=== PATIENT | male | born 1960 | race African-American/Black ===

== ENCOUNTER 2017-07-18 08:46 | Emergency (ER) | payer OTHER ==
[~2017-07-18] VITALS: Ht 180.3 cm; Wt 75.7 kg
[2017-07-18] MEDS ORDERED: PEPCID40 MG PO (09:25)
--- NOTE | 2017-07-18 09:25 | Emergency Room Report ---
History of Present Illness General Chief Complaint: Abdominal Pain Source: Patient Present Illness HPI 56-year-old male with no sig pmhx p/w epigastric abd pain for in week, but has been dealing with the problem for about 8 months. Patient states pain started gradually , localized to epigastric area, non radiating, burning in nature, intermittent. No relieving or exacerbating factors. Admits to have this pain multiple times in the past. denies chronic NSAID use. Pt reports n/v, 4 episodes of nbnb vomiting, no diarrhea. Denies black or bloody stools. Denies fever, chills. History of appendectomy No hx of endoscopies/colonoscopies. Allergies: Coded Allergies: No Known Allergies (Unverified , 07/18/17) Patient History Past Medical History: see triage record Past Surgical History: none Pertinent Family History: none Reviewed Nursing Documentation: PMH: Agreed, PSxH: Agreed Nursing Documentation-PMH Past Medical History: No History, Except For Review of Systems All Other Systems: negative except mentioned in HPI Physical Exam Vital Signs Date Time Temp Pulse Resp B/P (MAP) Pulse Ox O2 Delivery O2 Flow Rate FiO2 07/18/17 08:54 97.5 52 18 113/61 100 Room Air 97.5 Sp02 EP Interpretation: reviewed, normal General Appearance: normal inspection, well appearing, no apparent distress, alert, GCS 15, non-toxic Head: normocephalic, atraumatic Eyes: bilateral eye normal inspection, bilateral eye PERRL, bilateral eye EOMI ENT: normal ENT inspection, normal pharynx, normal voice, moist mucus membranes Neck: normal inspection, full range of motion, supple Respiratory: normal inspection, lungs clear, normal breath sounds, no respiratory distress, no retraction, no wheezing, speaking full sentences, chest symmetrical Cardiovascular #1: normal inspection, regular rate, rhythm, no edema, normal capillary refill Cardiovascular #2: 2+ radial (R), 2+ radial (L) Gastrointestinal: other - Epigastric tenderness, no right upper quadrant tenderness, nontender elsewhere in the abdomen, very soft and nonrigid Genitourinary: no CVA tenderness Musculoskeletal: normal inspection, back normal, normal range of motion, non- tender Neurologic: normal inspection, alert, oriented x3, responsive, motor strength/ tone normal, sensory intact, normal gait, speech normal Psychiatric: normal inspection, judgement/insight normal, memory normal Skin: normal inspection, normal color, no rash, warm/dry, well hydrated, normal turgor Medical Decision Making Diagnostic Impression: Primary Impression: Chronic epigastric pain ER Course 56-year-old male with epigastric abdominal pain for many months, worse for one week Differential Diagnosis: Gastritis, gastroenteritis, cholecystitis, appendicitis, diverticulitis,, UTI/ pyelo At this time abdomen is soft nontender a second epigastric region, not likely to have acute intra-abdominal surgical pathology, will hold CT for now. Plan: Basic labs, ua, ekg Pepcid, maalox, pain control, IVF ER course: Patient has remained stable during ED stay. Pain improved. Repeat abdominal exam is nontender. Tolerating PO Disposition: Patient is to be discharged to home. Prescriptions given are Pepcid Patient is instructed to follow up with their primary care doctor within 5 days. Patient is instructed to follow up with county or city auditor in one week Strict return precautions discussed with patient such as fever, chills, worsening/severe abdominal pain, nausea, vomiting, black or bloody stools, which may indicate severe illness. Patient verbalizes understanding and agrees with plan. Please note that this Emergency Department Report was dictated using [employer] inspector technology software, occasionally this can lead to erroneous entry secondary to interpretation by the dictation equipment EKG Diagnostic Results EP Interpretation: Yes Rate: normal Rhythm: NSR ST Segments: No acute changes ASA given to patient: No Laboratory Tests Test 07/18/17 09:31 White Blood Count 5.9 K/UL (4.8-10.8) Red Blood Count 4.95 M/UL (4.70-6.10) Hemoglobin 15.3 G/DL (14.2-18.0) Hematocrit 46.1 % (42.0-52.0) Mean Corpuscular Volume 93 FL (80-99) Mean Corpuscular Hemoglobin 31.0 PG (27.0-31.0) Mean Corpuscular Hemoglobin Concent 33.3 G/DL (32.0-36.0) Red Cell Distribution Width 12.3 % (11.6-14.8) Platelet Count 252 K/UL (150-450) Mean Platelet Volume 8.3 FL (6.5-10.1) Neutrophils (%) (Auto) 53.7 % (45.0-75.0) Lymphocytes (%) (Auto) 27.8 % (20.0-45.0) Monocytes (%) (Auto) 9.8 % (1.0-10.0) Eosinophils (%) (Auto) 7.2 % (0.0-3.0) H Basophils (%) (Auto) 1.5 % (0.0-2.0) Urine Color Pale yellow Urine Appearance Clear Urine pH 9 (4.5-8.0) Urine Specific [place] 1.015 (1.005-1.035) Urine Protein Negative (NEGATIVE) Urine Glucose (UA) Negative (NEGATIVE) Urine Ketones Negative (NEGATIVE) Urine Occult Blood Negative (NEGATIVE) Urine Nitrite Negative (NEGATIVE) Urine Bilirubin Negative (NEGATIVE) Urine Urobilinogen Normal MG/DL (0.0-1.0) Urine Leukocyte Esterase Negative (NEGATIVE) Sodium Level 142 MMOL/L (136-145) Potassium Level 4.3 MMOL/L (3.5-5.1) Chloride Level 105 MMOL/L (98-107) Carbon Dioxide Level 36 MMOL/L (21-32) H Anion Gap 1 mmol/L (5-15) L Blood Urea Nitrogen 13 mg/dL (7-18) Creatinine 1.2 MG/DL (0.55-1.30) Estimate Glomerular Filtration Rate > 60 mL/min (>60) Glucose Level 87 MG/DL (74-106) Calcium Level 9.2 MG/DL (8.5-10.1) Total Bilirubin 0.3 MG/DL (0.2-1.0) Aspartate Amino Transferase (AST) 17 U/L (15-37) Alanine Aminotransferase (ALT) < 6 U/L (12-78) L Alkaline Phosphatase 194 U/L (46-116) H Total Protein 6.8 G/DL (6.4-8.2) Albumin 3.6 G/DL (3.4-5.0) Globulin 3.2 g/dL Albumin/Globulin Ratio 1.1 (1.0-2.7) Lipase 179 U/L (73-393) Last Vital Signs Date Time Temp Pulse Resp B/P (MAP) Pulse Ox O2 Delivery O2 Flow Rate FiO2 07/18/17 08:54 97.5 52 18 113/61 100 Room Air 97.5 Disposition: HOME, SELF-CARE Condition: Improved Scripts Famotidine (PEPCID) 40 Mg Tablet 40 MG PO DAILY, #14 TAB 0 Refills Prov: Summer Hall M.D. 07/18/17 Patient Instructions: Abdominal Pain, Adult, Gastritis, Adult Summer Hall M.D. Jul 18, 2017 09:25
[2017-07-18] MEDS ORDERED: Dicyclomine HCl 10mg/5ml oral soln ORAL ONE (09:30)
[2017-07-18] MEDS ORDERED: Mylanta II UD 30ml ORAL ONE (09:30)
[2017-07-18] MEDS ORDERED: Lidocaine 2% Visc 15ml soln ORAL ONE (09:30)
[2017-07-18 09:47] LABS: ANION GAP 1 mmol/L (5-15); BLOOD UREA NITROGEN 13 mg/dL (7-18); CALCIUM 9.2 MG/DL (8.5-10.1); CARBON DIOXIDE 36 MMOL/L (21-32); CHLORIDE 105 MMOL/L (98-107); CREATININE 1.2 MG/DL (0.55-1.30); POTASSIUM 4.3 MMOL/L (3.5-5.1); SODIUM 142 MMOL/L (136-145)
[2017-07-18 09:51] LABS: APPEARANCE,URINE CLEAR; BILIRUBIN, URINE NEGATIVE (NEGATIVE); COLOR,URINE PALE YELLOW; GLUCOSE, URINE (UA) NEGATIVE (NEGATIVE); KETONES,URINE NEGATIVE (NEGATIVE); LEUKOCYTE ESTERASE ,URINE NEGATIVE (NEGATIVE); NITRITE,URINE NEGATIVE (NEGATIVE); PH,URINE 9 (4.5-8.0); PROTEIN,URINE NEGATIVE (NEGATIVE); UROBILINOGEN,URINE NORMAL MG/DL (0.0-1.0)
[2017-07-18 09:52] LABS: ALANINE AMINOTRANSFERASE < 6 U/L (12-78); ALBUMIN 3.6 G/DL (3.4-5.0); ALBUMIN/GLOBULIN RATIO 1.1 (1.0-2.7); ALKALINE PHOSPHATASE 194 U/L (46-116); ASPARTATE AMINO TRANSFERASE 17 U/L (15-37); BILIRUBIN,TOTAL 0.3 MG/DL (0.2-1.0)
[2017-07-18 09:53] LABS: BASOPHILS % (AUTO) 1.5 % (0.0-2.0); EOSINOPHILS % (AUTO) 7.2 % (0.0-3.0); HEMATOCRIT 46.1 % (42.0-52.0); HEMOGLOBIN 15.3 G/DL (14.2-18.0); LYMPHOCYTES % (AUTO) 27.8 % (20.0-45.0); MEAN CORPUSCULAR VOLUME 93 FL (80-99); MONOCYTES % (AUTO) 9.8 % (1.0-10.0); NEUTROPHILS % (AUTO) 53.7 % (45.0-75.0); PLATELET COUNT 252 K/UL (150-450); RED BLOOD COUNT 4.95 M/UL (4.70-6.10); RED CELL DISTRIBUTION WIDTH 12.3 % (11.6-14.8); WHITE BLOOD COUNT 5.9 K/UL (4.8-10.8)
[2017-07-18 10:00] VITALS: BP 126/76
[2017-07-18 10:47] VITALS: BP 126/76
--- NOTE | 2017-07-19 16:05 | Cardiology Report ---
APPROVED REPORT EKG Measurement Heart [id number] ID [id number] Sinus bradycardia Nonspecific T wave abnormality Abnormal ECG
== END 2017-07-18 10:55 | disposition home or self-care (01) ==
LOC: EMR 09:20
DX: R10.13 Epigastric pain (principal)
CPT/HCPCS: 36415; 80053; 81003; 83690; 85025; 93005; 96361; 96374; 96375; 99284; J2405; S0028

== ENCOUNTER 2017-07-27 12:02 | Emergency (ER) | payer OTHER ==
[~2017-07-27] VITALS: Ht 180.3 cm; Wt 79.4 kg
[~2017-07-27 12:02] MED LIST: PEPCID40 MG PO
--- NOTE | 2017-07-27 12:48 | Emergency Room Report ---
History of Present Illness General Chief Complaint: Abdominal Pain Source: Patient, Medical Record Present Illness HPI 56-year-old male, history of GERD p/w epigastric abd pain and episode of vomiting for day. States that he ate chocolate, started to feel that he had pain, had one episode nonbilious nonbloody vomiting. No fever Patient states pain started gradually , localized to epigastric area, non radiating, burning in nature, intermittent. No relieving or exacerbating factors. Admits to have this pain multiple times in the past. Denies fever, chills. No hx of abdominal surgeries. No hx of endoscopies/colonoscopies. Allergies: Coded Allergies: No Known Allergies (Unverified , 07/18/17) Patient History Past Medical History: see triage record Past Surgical History: none Pertinent Family History: none Reviewed Nursing Documentation: PMH: Agreed, PSxH: Agreed Nursing Documentation-PMH Past Medical History: No History, Except For Review of Systems All Other Systems: negative except mentioned in HPI Physical Exam Vital Signs Date Time Temp Pulse Resp B/P (MAP) Pulse Ox O2 Delivery O2 Flow Rate FiO2 07/27/17 12:09 97.8 60 18 110/71 97 Room Air 97.9 Sp02 EP Interpretation: reviewed, normal General Appearance: normal inspection, well appearing, no apparent distress, alert, GCS 15, non-toxic Head: normocephalic, atraumatic Eyes: bilateral eye normal inspection, bilateral eye PERRL, bilateral eye EOMI ENT: normal ENT inspection, normal pharynx, normal voice, moist mucus membranes Neck: normal inspection, full range of motion, supple Respiratory: normal inspection, lungs clear, normal breath sounds, no respiratory distress, no retraction, no wheezing, speaking full sentences, chest symmetrical Cardiovascular #1: normal inspection, regular rate, rhythm, no edema, normal capillary refill Cardiovascular #2: 2+ radial (R), 2+ radial (L) Gastrointestinal: normal inspection, non tender, soft, non-distended, no guarding Genitourinary: no CVA tenderness Musculoskeletal: normal inspection, back normal, normal range of motion, non- tender Neurologic: normal inspection, alert, oriented x3, responsive, motor strength/ tone normal, sensory intact, normal gait, speech normal Psychiatric: normal inspection, judgement/insight normal, memory normal Skin: normal inspection, normal color, no rash, warm/dry, well hydrated, normal turgor Medical Decision Making Diagnostic Impression: Primary Impression: Epigastric pain Additional Impression: Vomiting ER Course 56-year-old male with one episode of vomiting and epigastric pain Currently not in any acute distress Differential Diagnosis: Gastritis, gastroenteritis, UTI/pyelo At this time abdomen is soft nontender, not likely to have acute intra- abdominal surgical pathology, will hold CT for now. Plan: Basic labs, ua Pepcid, maalox, pain control, IVF ER course: Patient has remained stable during ED stay. Pain improved. Repeat abdominal exam is nontender. Tolerating PO Disposition: Patient is to be discharged to home. Prescriptions given are Pepcid Patient is instructed to follow up with their primary care doctor within 5 days. Strict return precautions discussed with patient such as fever, chills, worsening/severe abdominal pain, nausea, vomiting, black or bloody stools, which may indicate severe illness. Patient verbalizes understanding and agrees with plan. Please note that this Emergency Department Report was dictated using [employer] application analyst technology software, occasionally this can lead to erroneous entry secondary to interpretation by the dictation equipment EKG Diagnostic Results EP Interpretation: Yes Rate: normal Rhythm: NSR ST Segments: No acute changes ASA given to patient: No Last Vital Signs Date Time Temp Pulse Resp B/P (MAP) Pulse Ox O2 Delivery O2 Flow Rate FiO2 07/27/17 12:09 97.8 60 18 110/71 97 Room Air 97.9 Disposition: HOME, SELF-CARE Condition: Improved Scripts Famotidine (PEPCID) 40 Mg Tablet 40 MG PO DAILY, #7 TAB 0 Refills Prov: Summer Hall M.D. 07/27/17 Referrals: [facility],REFERRING (PCP) Patient Instructions: Abdominal Pain, Adult, Gastritis, Adult Summer Hall M.D. Jul 27, 2017 12:48
[2017-07-27 12:52] LABS: BASOPHILS % (AUTO) 1.7 % (0.0-2.0); EOSINOPHILS % (AUTO) 6.6 % (0.0-3.0); HEMATOCRIT 43.4 % (42.0-52.0); HEMOGLOBIN 14.6 G/DL (14.2-18.0); MEAN CORPUSCULAR VOLUME 92 FL (80-99); NEUTROPHILS % (AUTO) 48.8 % (45.0-75.0); PLATELET COUNT 233 K/UL (150-450); RED BLOOD COUNT 4.72 M/UL (4.70-6.10); RED CELL DISTRIBUTION WIDTH 11.9 % (11.6-14.8); WHITE BLOOD COUNT 5.1 K/UL (4.8-10.8)
[2017-07-27 13:00] LABS: APPEARANCE,URINE CLEAR; BILIRUBIN, URINE NEGATIVE (NEGATIVE); COLOR,URINE PALE YELLOW; GLUCOSE, URINE (UA) NEGATIVE (NEGATIVE); KETONES,URINE NEGATIVE (NEGATIVE); LEUKOCYTE ESTERASE ,URINE NEGATIVE (NEGATIVE); NITRITE,URINE NEGATIVE (NEGATIVE); PH,URINE 6 (4.5-8.0); PROTEIN,URINE NEGATIVE (NEGATIVE); UROBILINOGEN,URINE NORMAL MG/DL (0.0-1.0)
[2017-07-27] MEDS ORDERED: Dicyclomine HCl 10mg/5ml oral soln ORAL ONE (13:00)
[2017-07-27] MEDS ORDERED: Mylanta II UD 30ml ORAL ONE (13:00)
[2017-07-27] MEDS ORDERED: Lidocaine 2% Visc 15ml soln ORAL ONE (13:00)
[2017-07-27 13:03] VITALS: BP 122/80
[2017-07-27 13:04] LABS: ANION GAP 2 mmol/L (5-15); BLOOD UREA NITROGEN 15 mg/dL (7-18); CARBON DIOXIDE 32 MMOL/L (21-32); CHLORIDE 105 MMOL/L (98-107); CREATININE 1.3 MG/DL (0.55-1.30); POTASSIUM 4.1 MMOL/L (3.5-5.1); SODIUM 139 MMOL/L (136-145)
[2017-07-27 13:08] LABS: ALANINE AMINOTRANSFERASE 23 U/L (12-78); ALBUMIN 3.6 G/DL (3.4-5.0); ALBUMIN/GLOBULIN RATIO 1.2 (1.0-2.7); ALKALINE PHOSPHATASE 193 U/L (46-116); ASPARTATE AMINO TRANSFERASE 16 U/L (15-37); BILIRUBIN,TOTAL 0.3 MG/DL (0.2-1.0)
[2017-07-27] MEDS ORDERED: PEPCID40 MG PO (13:21)
[2017-07-27 13:33] VITALS: BP 118/72
--- NOTE | 2017-07-30 16:36 | Cardiology Report ---
APPROVED REPORT EKG Measurement Heart [id number] Sinus bradycardia with sinus arrhythmia Otherwise normal ECG
== END 2017-07-27 13:34 | disposition home or self-care (01) ==
LOC: EMR 12:16
DX: R10.13 Epigastric pain (principal); R11.10 Vomiting, unspecified
CPT/HCPCS: 36415; 80053; 81003; 83690; 85025; 93005; 96374; 99284; J2405

== ENCOUNTER 2017-08-08 23:10 | Emergency (ER) | payer OTHER ==
[~2017-08-08] VITALS: Ht 180.3 cm; Wt 78.0 kg
[2017-08-08] MEDS ORDERED: Lidocaine 2% Visc 15ml soln ORAL ONE (23:30)
[2017-08-08] MEDS ORDERED: Albuterol ud Inhalation HHN ONE (23:30)
[2017-08-08] MEDS ORDERED: Dicyclomine HCl 10mg/5ml oral soln ORAL ONE (23:30)
[2017-08-08] MEDS ORDERED: Ipratropium 0.02% Inh Soln 2.5ml UD HHN ONE (23:30)
[2017-08-08] MEDS ORDERED: Mylanta II UD 30ml ORAL ONE (23:30)
[2017-08-09 00:13] LABS: APPEARANCE,URINE CLEAR; BILIRUBIN, URINE NEGATIVE (NEGATIVE); COLOR,URINE PALE YELLOW; GLUCOSE, URINE (UA) NEGATIVE (NEGATIVE); KETONES,URINE NEGATIVE (NEGATIVE); LEUKOCYTE ESTERASE ,URINE NEGATIVE (NEGATIVE); NITRITE,URINE NEGATIVE (NEGATIVE); PH,URINE 8 (4.5-8.0); PROTEIN,URINE NEGATIVE (NEGATIVE); UROBILINOGEN,URINE NORMAL MG/DL (0.0-1.0)
[2017-08-09 00:21] LABS: BASOPHILS % (AUTO) 0.9 % (0.0-2.0); EOSINOPHILS % (AUTO) 0.6 % (0.0-3.0); HEMATOCRIT 45.5 % (42.0-52.0); HEMOGLOBIN 15.8 G/DL (14.2-18.0); LYMPHOCYTES % (AUTO) 16.2 % (20.0-45.0); MEAN CORPUSCULAR VOLUME 91 FL (80-99); MONOCYTES % (AUTO) 3.4 % (1.0-10.0); NEUTROPHILS % (AUTO) 78.9 % (45.0-75.0); PLATELET COUNT 212 K/UL (150-450); WHITE BLOOD COUNT 9.6 K/UL (4.8-10.8)
[2017-08-09 00:28] LABS: ANION GAP 7 mmol/L (5-15); BLOOD UREA NITROGEN 15 mg/dL (7-18); CALCIUM 8.7 MG/DL (8.5-10.1); CARBON DIOXIDE 31 MMOL/L (21-32); CHLORIDE 104 MMOL/L (98-107); CREATININE 1.3 MG/DL (0.55-1.30); SODIUM 142 MMOL/L (136-145)
[2017-08-09 00:42] LABS: ALANINE AMINOTRANSFERASE 22 U/L (12-78); ALBUMIN 3.8 G/DL (3.4-5.0); ALBUMIN/GLOBULIN RATIO 1.2 (1.0-2.7); ALKALINE PHOSPHATASE 209 U/L (46-116); ASPARTATE AMINO TRANSFERASE 16 U/L (15-37); BILIRUBIN,TOTAL 0.4 MG/DL (0.2-1.0); CKMB 0.6 NG/ML (0.0-3.6); CREATINE KINASE 129 U/L (26-308)
[2017-08-09] MEDS ORDERED: PREDNISONE20 MG ORAL (00:52)
[2017-08-09] MEDS ORDERED: ALBUTEROL SULF8.5 GM INH (00:52)
[2017-08-09] MEDS ORDERED: RANITIDINE HCL150 MG ORAL (00:52)
[2017-08-09 01:16] VITALS: BP 122/67
--- NOTE | 2017-08-09 01:36 | Emergency Room Report ---
History of Present Illness General Chief Complaint: Abdominal Pain Source: Patient Present Illness HPI 56-year-old male presents ED for evaluation. Patient complaining of epigastric pain 1 hour. Sharp, 8 out of 10, nonradiating. States she has history of "stomach problems". His been here before for similar presentation. Patient also presenting with shortness of breath and dizziness with deep breaths. Denies any chest pain. Denies any leg swelling. Denies history of asthma. Admits to smoking. Denies cough. No other aggravating relieving factors. Denies any other associated symptoms Allergies: Coded Allergies: No Known Allergies (Unverified , 07/18/17) Patient History Past Medical History: none Past Surgical History: none Pertinent Family History: none Social History: Denies: smoking, alcohol use, drug use Immunizations: UTD Reviewed Nursing Documentation: PMH: Agreed, PSxH: Agreed Nursing Documentation-PMH Past Medical History: No Stated History Review of Systems All Other Systems: negative except mentioned in HPI Physical Exam Vital Signs Date Time Temp Pulse Resp B/P (MAP) Pulse Ox O2 Delivery O2 Flow Rate FiO2 08/08/17 23:13 97.6 64 14 122/67 96 Room Air 97.5 Sp02 EP Interpretation: reviewed, normal General Appearance: no apparent distress, alert, GCS 15, non-toxic Head: normocephalic, atraumatic Eyes: bilateral eye normal inspection, bilateral eye PERRL ENT: hearing grossly normal, normal pharynx, no angioedema, normal voice Neck: full range of motion, supple/symm/no masses Respiratory: chest non-tender, lungs clear, decreased breath sounds, speaking full sentences Cardiovascular #1: regular rate, rhythm, no edema Cardiovascular #2: 2+ carotid (R), 2+ carotid (L), 2+ radial (R), 2+ radial (L) , 2+ dorsalis pedis (R), 2+ dorsalis pedis (L) Gastrointestinal: normal bowel sounds, soft, non-distended, no guarding, no rebound, tenderness Rectal: deferred Genitourinary: normal inspection, no CVA tenderness Musculoskeletal: back normal, gait/station normal, normal range of motion, non- tender Neurologic: alert, oriented x3, responsive, motor strength/tone normal, sensory intact, speech normal Psychiatric: judgement/insight normal, memory normal, mood/affect normal, no suicidal/homicidal ideation Reflexes: 3+ bicep (R), 3+ bicep (L), 3+ tricep (R), 3+ tricep (L), 3+ knee (R) , 3+ knee (L) Skin: normal color, no rash, warm/dry, well hydrated Lymphatic: no adenopathy Medical Decision Making Diagnostic Impression: Primary Impression: Bronchitis Additional Impression: Gastritis Qualified Codes: K29.00 - Acute gastritis without bleeding ER Course Hospital Course 56-year-old male presents ED with epigastric pain. History of gastritis. Also complaining of shortness of breath and dizziness Differential diagnoses include: PTX, bronchitis, VA/unstable angina, contusion, muscle strain Clinical course Patient placed on stretcher. After initial history and physical I ordered labs , EKG, chest x-ray, IVFs, meds, nebulizer treatments. labs reviewed- all electrolytes normal, troponins negative, no leukocytosis, hemoglobin/hematocrit stable EKG - NSR, no acute ischemic changes interpreted by me Chest x-ray-no cardiomegaly, no rib fracture, no pneumothorax, no acute process On reassessment symptoms improved. Patient feeling better. States breathing treatment helped. Likely bronchitis. No cardiac risk factors. I believe patient can be safely discharged to home. I. I feel this is a highly complex case requiring extensive working including EKG/Rhythm strip, Xray/CT/US, Blood/urine lab work, repeat exams while in ED, and administration of strong opiates/narcotics for pain control, admission to hospital or close patient follow up. Diagnosis - bronchitis, gastritis Stable and discharged to home with Rx albuterol, prednisone, zantac. Instructed to followup with PMD. Return to ED if symptoms recur or worsen Labs Test 08/08/17 23:59 White Blood Count 9.6 K/UL (4.8-10.8) Red Blood Count 5.00 M/UL (4.70-6.10) Hemoglobin 15.8 G/DL (14.2-18.0) Hematocrit 45.5 % (42.0-52.0) Mean Corpuscular Volume 91 FL (80-99) Mean Corpuscular Hemoglobin 31.6 PG (27.0-31.0) Mean Corpuscular Hemoglobin Concent 34.7 G/DL (32.0-36.0) Red Cell Distribution Width 12.0 % (11.6-14.8) Platelet Count 212 K/UL (150-450) Mean Platelet Volume 8.1 FL (6.5-10.1) Neutrophils (%) (Auto) 78.9 % (45.0-75.0) Lymphocytes (%) (Auto) 16.2 % (20.0-45.0) Monocytes (%) (Auto) 3.4 % (1.0-10.0) Eosinophils (%) (Auto) 0.6 % (0.0-3.0) Basophils (%) (Auto) 0.9 % (0.0-2.0) Urine Color Pale yellow Urine Appearance Clear Urine pH 8 (4.5-8.0) Urine Specific [place] 1.010 (1.005-1.035) Urine Protein Negative (NEGATIVE) Urine Glucose (UA) Negative (NEGATIVE) Urine Ketones Negative (NEGATIVE) Urine Occult Blood Negative (NEGATIVE) Urine Nitrite Negative (NEGATIVE) Urine Bilirubin Negative (NEGATIVE) Urine Urobilinogen Normal MG/DL (0.0-1.0) Urine Leukocyte Esterase Negative (NEGATIVE) Sodium Level 142 MMOL/L (136-145) Potassium Level 4.0 MMOL/L (3.5-5.1) Chloride Level 104 MMOL/L (98-107) Carbon Dioxide Level 31 MMOL/L (21-32) Anion Gap 7 mmol/L (5-15) Blood Urea Nitrogen 15 mg/dL (7-18) Creatinine 1.3 MG/DL (0.55-1.30) Estimat Glomerular Filtration Rate > 60 mL/min (>60) Glucose Level 103 MG/DL (74-106) Calcium Level 8.7 MG/DL (8.5-10.1) Total Bilirubin 0.4 MG/DL (0.2-1.0) Aspartate Amino Transf (AST/SGOT) 16 U/L (15-37) Alanine Aminotransferase (ALT/SGPT) 22 U/L (12-78) Alkaline Phosphatase 209 U/L (46-116) Total Creatine Kinase 129 U/L (26-308) Creatine Kinase MB 0.6 NG/ML (0.0-3.6) Creatine Kinase MB Relative Index 0.4 Troponin I 0.000 ng/mL (0.000-0.056) Total Protein 7.1 G/DL (6.4-8.2) Albumin 3.8 G/DL (3.4-5.0) Globulin 3.3 g/dL Albumin/Globulin Ratio 1.2 (1.0-2.7) Lipase 112 U/L (73-393) EKG Diagnostic Results Rate: normal Rhythm: NSR ST Segments: no acute changes ASA given to the pt in ED: No Rhythm Strip Diag. Results EP Interpretation: yes Rhythm: NSR, no PVC's, no ectopy Chest X-Ray Diagnostic Results Chest X-Ray Diagnostic Results : Chest X-Ray Ordered: Yes # of Views/Limited/Complete: 1 View Indication: Shortness of Breath EP Interpretation: Yes Interpretation: no consolidation, no effusion, no pneumothorax, no acute cardiopulmonary disease Impression: No acute disease Electronically Signed by: Electronically signed by Ciro Rose MD Last Vital Signs Date Time Temp Pulse Resp B/P (MAP) Pulse Ox O2 Delivery O2 Flow Rate FiO2 08/09/17 01:16 97.5 18 122/67 100 Room Air 97.5 08/09/17 00:40 82 Status: improved Disposition: HOME, SELF-CARE Condition: Stable Scripts Ranitidine Hcl* (ZANTAC*) 150 Mg Tablet 150 MG ORAL TWICE A DAY, #30 TAB Prov: CIRO ROSE M.D. 08/09/17 Albuterol Sulfate* (ALBUTEROL SULFATE MDI*) 8.5 Gm Hfa.aer.ad 2 PUFF INH Q4H Y for cough/wheezing, #1 EA 0 Refills Prov: CIRO ROSE M.D. 08/09/17 Prednisone* (PREDNISONE*) 20 Mg Tablet 40 MG ORAL DAILY, #10 TAB Prov: CIRO ROSE M.D. 08/09/17 Patient Instructions: Gastritis, Adult, Acute Bronchitis, [id number] CIRO ROSE M.D. Aug 09, 2017 01:35
--- NOTE | 2017-08-09 11:54 | Diagnostic Imaging Report ---
Indication: Shortness of breath Technique: One view of the chest Comparison: Findings: Lungs and pleural spaces are clear. Heart size is upper limits normal Impression: No acute process This agrees with the preliminary interpretation provided by the emergency room physician
--- NOTE | 2017-08-09 16:47 | Cardiology Report ---
APPROVED REPORT EKG Measurement Heart [id number] Sinus rhythm with premature atrial complexes Nonspecific T wave abnormality Abnormal ECG
== END 2017-08-09 01:17 | disposition home or self-care (01) ==
LOC: EMR 23:32
DX: J40 Bronchitis, not specified as acute or chronic (principal); K29.70 Gastritis, unspecified, without bleeding
CPT/HCPCS: 36415; 71045; 80053; 81003; 82550; 82553; 83690; 84484; 85025; 93005; 94640; 94664; 96374; 96375; 99284; S0028

== ENCOUNTER 2017-10-10 12:56 | Emergency (ER) | payer OTHER ==
[~2017-10-10] VITALS: Ht 180.3 cm; Wt 82.6 kg
[~2017-10-10 12:56] MED LIST changes: +ALBUTEROL SULF8.5 GM INH; +PREDNISONE20 MG ORAL; +RANITIDINE HCL150 MG ORAL
[2017-10-10 13:08] VITALS: BP 115/67
[2017-10-10] MEDS ORDERED: Dicyclomine HCl 10mg/5ml oral soln ORAL ONE (13:30)
[2017-10-10] MEDS ORDERED: Lidocaine 2% Visc 15ml soln ORAL ONE (13:30)
[2017-10-10] MEDS ORDERED: Mylanta II UD 30ml ORAL ONE (13:30)
[2017-10-10] MEDS ORDERED: ACID CONTROL150 MG ORAL (13:36)
--- NOTE | 2017-10-10 13:38 | Emergency Room Report ---
History of Present Illness General Chief Complaint: Abdominal Pain Source: Patient Present Illness HPI 57-year-old male patient presents to ER complaining of epigastric pain secondary to acid reflux. Patient reports a history of acid reflux, currently taking famotidine for relief of symptoms, states he takes medication after symptoms began after eating. Patient reports that he ate steak,, string beans, mash potato dinner and experiencing symptoms yesterday. Reports vomiting, denies blood in vomit. Reports epigastric pain since that time. Denies diarrhea or urinary problems. Reports was able to eat food this morning without throwing up. Denies fever, chest pain, shortness of breath. Allergies: Coded Allergies: No Known Allergies (Unverified , 07/18/17) Patient History Past Medical History: see triage record Reviewed Nursing Documentation: PMH: Agreed; PSxH: Agreed Review of Systems All Other Systems: negative except mentioned in HPI Physical Exam Vital Signs Date Time Temp Pulse Resp B/P (MAP) Pulse Ox O2 Delivery O2 Flow Rate FiO2 10/10/17 13:08 97.8 52 19 115/67 97 Room Air 97.8 Sp02 EP Interpretation: reviewed, normal General Appearance: well appearing, no apparent distress, alert, GCS 15, non- toxic Head: normocephalic, atraumatic ENT: hearing grossly normal, normal pharynx, no angioedema, normal voice, uvula midline, moist mucus membranes Respiratory: lungs clear, normal breath sounds, no rhonchi, no respiratory distress, no accessory muscle use, no wheezing, speaking full sentences Cardiovascular #1: regular rate, rhythm, no edema Gastrointestinal: normal bowel sounds, non tender, soft, no mass, non-distended , no guarding, no rebound, other - negative Rovsing, negative Charles Genitourinary: no CVA tenderness Musculoskeletal: back normal, digits/nails normal, gait/station normal, normal range of motion, non-tender Neurologic: alert, oriented x3, responsive, motor strength/tone normal, sensory intact Medical Decision Making PA Attestation Dr. Avilez is my supervising Physician whom patient management has been discussed with. Diagnostic Impression: Primary Impression: Hx of gastroesophageal reflux (GERD) ER Course Pt. presents to the ED c/o intermittent epigastric pain. Ddx considered but are not limited to esophagitis, GERD, vomiting. negative Charles sign, negative Rovsing, low suspicion for cholecystitis or appendicitis. Vital signs: are WNL, pt. is afebrile Ordered Zofran and GI cocktail. ER COURSE: Physical examination no tenderness to palpation of abdomen on distraction. Low suspicion for acute underlying pathology, does not require labs or imaging at this time. Discussed acid reflux symptoms with patient, likely related to previous meal. Provided patient with GERD precautions. No red flag symptoms at this time, no chest pain or shortness of breath. instructed patient to take medication prior to meals to help prevent reflux symptoms. Follow up with PCP and discuss referral to GI for further diagnosis and treatment. May need new or change in current medication patient reports relief of symptoms following administration of medication. Patient able to tolerate by mouth fluids at this time. Patient okay for discharge to home. ER precautions given. Return to ER for new or worsening of symptoms. DISCHARGE: Rx provided for Ranitidine At this time pt is stable for d/c to home. Patient is resting, in no acute distress, nontoxic appearing. Will provide with patient care instructions and any necessary prescriptions. Patient to take medication as instructed. Care plan and follow-up instructions provided. Patient questions asked and answered. Patient instructed to follow-up with primary care provider in 3- 5 days to discuss further treatment and referral to GI specialist for evaluation. Patient states understanding and agreement to treatment plan ER precautions given. Patient instructed to return to ER immediately for any new or worsening of symptoms - Please note that this Emergency Department Report was dictated using [employer] truck operator technology software, occasionally this can lead to erroneous entry secondary to interpretation by the dictation equipment. Last Vital Signs Date Time Temp Pulse Resp B/P (MAP) Pulse Ox O2 Delivery O2 Flow Rate FiO2 10/10/17 13:08 97.8 52 19 115/67 97 Room Air 97.9 Disposition: HOME, SELF-CARE Condition: Stable Scripts Ranitidine Hcl* (ACID CONTROL*) 150 Mg Tablet 150 MG ORAL TWICE A DAY, #30 TAB Prov: Ran Martinez 10/10/17 Patient Instructions: Food Choices for Gastroesophageal Reflux Disease, Adult, [id number], Gastroesophageal Reflux Disease, Adult, Heartburn, [id number], Upper Gastrointestinal Series Additional Instructions: Followup with primary care provider in 3 -5 days for further treatment and referral to GI. Keep food journal of foods eaten and times of symptom onset. Take medications as directed. Patient questions asked and answered. ER precautions given, patient instructed to return to ER immediately for any new or worsening of symptoms including but not limited to chest pain, SOB, abdominal pain, blood in vomit. Drink fluids as tolerated to prevent dehydration. Take Tylenol OTC for pain, easier on stomach. Avoid spicy foods, avoid dairy. Do not eat late night meals. Elevate head of bed when sleeping. Ran Martinez October 10, 2017 13:38
[2017-10-10 13:55] VITALS: BP 115/67
== END 2017-10-10 13:54 | disposition home or self-care (01) ==
LOC: EMR 13:39
DX: R10.13 Epigastric pain (principal); Z87.19 Personal history of other diseases of the digestive system
CPT/HCPCS: 99283

== ENCOUNTER 2018-01-13 19:18 | Emergency (ER) | payer OTHER ==
[~2018-01-13] VITALS: Ht 180.3 cm; Wt 83.0 kg
[~2018-01-13 19:18] MED LIST changes: +ACID CONTROL150 MG ORAL
--- NOTE | 2018-01-13 19:55 | Emergency Room Report ---
History of Present Illness General Chief Complaint: Diarrhea Source: Patient Present Illness HPI Patient and girlfriend here with diarrhea. Also has abdominal cramping. Brown and green. No blood. No fevers. + nausea no vomit. No URI sy. Whereas girlfriend's diarrhea has stopped 3 days ago (after Immodium), his persists. Pain rated 8/10, diffuse, cramping and aching, intermittent. No travel, no unusual foods. Patient has h/o acid reflux and was on meds for this in the past. No headache, dizziness. Denies diabetes or other chronic illnesses. 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 Reviewed Nursing Documentation: PMH: Agreed; PSxH: Agreed Review of Systems All Other Systems: negative except mentioned in HPI Physical Exam Vital Signs Date Time Temp Pulse Resp B/P (MAP) Pulse Ox O2 Delivery O2 Flow Rate FiO2 01/13/18 19:31 98.2 62 18 114/78 95 Room Air 98.2 Sp02 EP Interpretation: reviewed, normal General Appearance: well appearing, no apparent distress, GCS 15, non-toxic Head: normocephalic, atraumatic Eyes: bilateral eye normal inspection, bilateral eye PERRL ENT: hearing grossly normal, normal voice, moist mucus membranes Neck: full range of motion, supple Respiratory: no respiratory distress, speaking full sentences Gastrointestinal: normal inspection, normal bowel sounds, soft, no guarding, no rebound, tenderness Musculoskeletal: digits/nails normal, gait/station normal, normal range of motion, no calf tenderness Neurologic: alert, oriented x3, normal gait, grossly normal Psychiatric: mood/affect normal Skin: no rash Medical Decision Making Diagnostic Impression: Primary Impression: Gastroenteritis ER Course Patient with diarrhea and acid feeling in stomach. DDx: gastroenteritis, pancreatitis, food poisoning amongst others. As girlfriend also has/had, consider infectious etiology. Not toxic and soft abdomen, doubt diverticulitis or invasive colitis. Given pepcid, zofran and loperamide. No labs indicated. Discussed treatment plan with patient. Patient stable for outpatient observation and treatment. Last Vital Signs Date Time Temp Pulse Resp B/P (MAP) Pulse Ox O2 Delivery O2 Flow Rate FiO2 01/13/18 20:13 98.2 18 114/78 95 Room Air 98.2 01/13/18 19:31 62 Status: improved Disposition: HOME, SELF-CARE Condition: Improved Scripts Loperamide Hcl (IMODIUM A-D) 1 Mg/7.5 Ml Liquid 1 MG PO BID PRN for Diarrhea, #6 ML Prov: Mich Spears M.D. 01/13/18 Ondansetron Odt* (ZOFRAN ODT*) 4 Mg Tab.rapdis 4 MG BC EVERY 8 HOURS, #6 TAB 0 Refills Prov: Mich Spears M.D. 01/13/18 Famotidine (PEPCID AC) 20 Mg Tablet 20 MG PO DAILY, #20 TAB 1 Refill Prov: Mich Spears M.D. 01/13/18 Mich Spears M.D. Jan 13, 2018 19:55
[2018-01-13] MEDS ORDERED: ONDANSETRON ODT4 MG BC (19:58)
[2018-01-13] MEDS ORDERED: IMODIUM A-1 MG/7.5 M PO (19:58)
[2018-01-13] MEDS ORDERED: PEPCID AC20 M2 PO (19:58)
[2018-01-13] MEDS ORDERED: Loperamide 2mg cap ORAL ONE (20:00)
[2018-01-13 20:12] VITALS: BP 114/78
[2018-01-13 20:13] VITALS: BP 114/78
== END 2018-01-13 20:01 | disposition home or self-care (01) ==
LOC: EMR 20:00
DX: K52.9 Noninfective gastroenteritis and colitis, unspecified (principal)
CPT/HCPCS: 99284

== ENCOUNTER 2018-02-15 19:44 | Emergency (ER) | payer OTHER ==
[~2018-02-15] VITALS: Ht 180.3 cm; Wt 80.3 kg
[~2018-02-15 19:44] MED LIST changes: +IMODIUM A-1 MG/7.5 M PO; +ONDANSETRON ODT4 MG BC; +PEPCID AC20 M2 PO
[2018-02-15] MEDS ORDERED: Norco 5mg/325mg tab ORAL ONE (20:15)
[2018-02-15] MEDS ORDERED: Tetanus/Diptheria/Pertussis Vaccine 0.5ml Syr IM ONE (20:15)
[2018-02-15] MEDS ORDERED: NORCO 5-325 TA1 EACH ORAL (20:16)
[2018-02-15] MEDS ORDERED: SILVADENE20 GM TP (20:16)
[2018-02-15] MEDS ORDERED: AUGMENTIN 875-1 EAC1 ORAL (20:16)
[2018-02-15] MEDS ORDERED: OMEPRAZOLE20 M2 ORAL (20:22)
[2018-02-15 20:46] VITALS: BP 106/67
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
== END 2018-02-15 20:53 | disposition home or self-care (01) ==
LOC: EMR 20:10
DX: S60.512A Abrasion of left hand, initial encounter (principal); L03.114 Cellulitis of left upper limb; X15.3XXA Contact with hot saucepan or skillet, initial encounter; Y93.89 Activity, other specified; Y92.9 Unspecified place or not applicable; Z23 Encounter for immunization
CPT/HCPCS: 90471; 90715; 99283

== ENCOUNTER 2018-03-06 16:32 | Emergency (ER) | payer OTHER ==
[~2018-03-06] VITALS: Ht 180.3 cm; Wt 80.7 kg
[~2018-03-06 16:32] MED LIST changes: +AUGMENTIN 875-1 EAC1 ORAL; +NORCO 5-325 TA1 EACH ORAL; +OMEPRAZOLE20 M2 ORAL; +SILVADENE20 GM TP
[2018-03-06] MEDS ORDERED: PEPCID AC20 M2 PO (16:54)
[2018-03-06] MEDS ORDERED: BACTROBAN CR1 APPLIC TOPIC (16:54)
[2018-03-06] MEDS ORDERED: NORCO 5-325 TA1 EACH ORAL (16:54)
[2018-03-06 17:39] VITALS: BP 108/67
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
== END 2018-03-06 17:40 | disposition home or self-care (01) ==
LOC: EMR 16:49
DX: S00.86XA Insect bite (nonvenomous) of other part of head, initial encounter (principal); W57.XXXA Bitten or stung by nonvenomous insect and other nonvenomous arthropods, initial encounter; Y92.9 Unspecified place or not applicable; K29.70 Gastritis, unspecified, without bleeding; R19.7 Diarrhea, unspecified; T23.20 Burn of second degree of hand, unspecified site; K21.9 Gastro-esophageal reflux disease without esophagitis
CPT/HCPCS: 99283

== ENCOUNTER 2018-03-10 18:54 | Emergency (ER) | payer OTHER ==
[~2018-03-10] VITALS: Ht 180.3 cm; Wt 80.7 kg
[~2018-03-10 18:54] MED LIST changes: +BACTROBAN CR1 APPLIC TOPIC
[2018-03-10] MEDS ORDERED: Bacitracin Oint 15gm Tube TOPIC ONE (19:15)
--- NOTE | 2018-03-10 19:28 | Emergency Room Report ---
History of Present Illness General Chief Complaint: Skin Rash/Abscess Source: Patient Present Illness HPI 57 YO male presents to the ED c/o 11/28 in severity pain, swelling, and erythema to a localized area on the right cheek x 5 days. pt. reports being evaluated previously last week and was rx'd ointment which has not helped. pt. reports his symptoms are worse and continue to progress. pt reports last week they were unable to express anything from the lesion. he states he has been icing it. denies use of warm compressed. pt denies pain with eye movements or purulent nasal drainage. pt. denies fevers or chills. Allergies: Coded Allergies: No Known Allergies (Unverified , 03/06/18) Patient History Past Medical History: see triage record Past Surgical History: none Pertinent Family History: none Immunizations: UTD Reviewed Nursing Documentation: PMH: Agreed; PSxH: Agreed Nursing Documentation-PMH Past Medical History: No History, Except For Hx Cardiac Problems: No Hx Hypertension: No Hx Pacemaker: No Hx Asthma: No Hx COPD: No Hx Diabetes: No Hx Cancer: No Hx Gastrointestinal Problems: Yes - GERD Hx Dialysis: No Hx Neurological Problems: No Hx Cerebrovascular Accident: No Hx Seizures: No Review of Systems All Other Systems: negative except mentioned in HPI Physical Exam Vital Signs Date Time Temp Pulse Resp B/P (MAP) Pulse Ox O2 Delivery O2 Flow Rate FiO2 03/10/18 19:05 98.1 59 16 115/68 95 Room Air 98.1 Sp02 EP Interpretation: reviewed, normal General Appearance: no apparent distress, alert, GCS 15, non-toxic Head: normocephalic, atraumatic, other - abscess on the face with some infection noted. there is induration , no fluctuance. no blisters or vesicles. Eyes: bilateral eye normal inspection, bilateral eye PERRL, bilateral eye EOMI ENT: hearing grossly normal, normal voice Neck: full range of motion Respiratory: chest non-tender, lungs clear, normal breath sounds, speaking full sentences Cardiovascular #1: regular rate, rhythm, no edema Musculoskeletal: back normal, gait/station normal, normal range of motion, non- tender Neurologic: alert, oriented x3, responsive, motor strength/tone normal, sensory intact, normal gait, speech normal, grossly normal Psychiatric: judgement/insight normal Skin: no rash, warm/dry, well hydrated, other - abscess on the face with some infection noted. there is induration , no fluctuance. no blisters or vesicles. Lymphatic: no adenopathy Medical Decision Making PA Attestation Dr. silva is my supervising Physician whom patient management has been discussed with. Diagnostic Impression: Primary Impression: Facial abscess ER Course 57 YO male presents to the ED c/o 11/28 in severity pain, swelling, and erythema to a localized area on the right cheek x 5 days. pt. reports being evaluated previously last week and was rx'd ointment which has not helped. pt. reports his symptoms are worse and continue to progress. pt reports last week they were unable to express anything from the lesion. he states he has been icing it. denies use of warm compressed. pt denies pain with eye movements or purulent nasal drainage. pt. denies fevers or chills. Ddx considered but are not limited to cellulitis, abscess, cystic acne, necrotizing fasciitis, insect bite, orbital cellulitis. Vital signs: are WNL, pt. is afebrile H&PE are most consistent with abscess on the face with some infection noted. there is induration , no fluctuance. no blisters or vesicles. ORDERS: none required at this time, the diagnosis is clinical ED INTERVENTIONS: -- d/w pt. that I do not feel fluctuance, and previous attempt at prior visit was unproductive I do not feel attempting to drain again with be the best course, also the location at which this lesion is very close to the lower lid. I explained to him I recommend a application architect manager or specialist to attempt additional drainage procedures. D/w pt. potential of scarring. - pt. demonstrates understanding and agreement. - Doxycycline PO - bacitracin DISCHARGE: At this time pt. is stable for d/c to home. Will provide printed patient care instructions, and any necessary prescriptions. Care plan and follow up instructions have been discussed with the patient prior to discharge. Last Vital Signs Date Time Temp Pulse Resp B/P (MAP) Pulse Ox O2 Delivery O2 Flow Rate FiO2 03/10/18 19:05 98.1 59 16 115/68 95 Room Air 98.1 Disposition: HOME, SELF-CARE Condition: Stable Scripts Acetaminophen* (TYLENOL EXTRA STRENGTH*) 500 Mg Tablet 500 MG ORAL Q6H, #20 TAB 0 Refills Prov: Alexa Stone 03/10/18 Doxycycline Hyclate* (VIBRAMYCIN*) 100 Mg Capsule 100 MG ORAL EVERY 12 HOURS for 7 Days, #14 CAP 0 Refills Prov: Alexa Stone 03/10/18 Departure Forms: Return to Work Return to Work Date: Mar 13, 2018 Work Restrictions: None Return to Full Activity: Mar 13, 2018 Patient Instructions: Abscess Additional Instructions: Take medications as directed. Follow up with a Primary Care Provider in 3-5 days for DERMATOLOGY REFERRAL , even if your symptoms have resolved. --Please review list of primary care clinics, if you do not already have a primary care provider Return sooner to ED if new symptoms occur, or current symptoms become worse. - Please note that this Emergency Department Report was dictated using [employer] technology software, occasionally this can lead to erroneous entry secondary to interpretation by the dictation equipment. Alexa Stone Mar 10, 2018 19:27
[2018-03-10 19:29] VITALS: BP 115/68
[2018-03-10] MEDS ORDERED: VIBRAMYCIN100 MG ORAL (19:29)
[2018-03-10] MEDS ORDERED: TYLENOL EXTRA500 MG ORAL (19:29)
[2018-03-10 19:45] VITALS: BP 125/79
== END 2018-03-10 20:15 | disposition home or self-care (01) ==
LOC: EMR 20:03
DX: L02.01 Cutaneous abscess of face (principal)
CPT/HCPCS: 99283

== ENCOUNTER 2018-03-24 13:32 | Emergency (ER) | payer OTHER ==
[~2018-03-24] VITALS: Ht 180.3 cm; Wt 79.8 kg
[~2018-03-24 13:32] MED LIST changes: +TYLENOL EXTRA500 MG ORAL; +VIBRAMYCIN100 MG ORAL
[2018-03-24 13:59] VITALS: BP 111/74
[2018-03-24] MEDS ORDERED: Lidocaine 2% Visc 15ml soln ORAL ONE (14:00)
[2018-03-24] MEDS ORDERED: Sodium Chloride 500ML 500 ML IV ONE (14:00)
[2018-03-24] MEDS ORDERED: Dicyclomine HCl 10mg/5ml oral soln ORAL ONE (14:00)
[2018-03-24] MEDS ORDERED: Mylanta II UD 30ml ORAL ONE (14:00)
--- NOTE | 2018-03-24 14:03 | Emergency Room Report ---
History of Present Illness General Chief Complaint: Abdominal Pain Source: Patient Present Illness HPI Patient is a 57-year-old male presented after increased abdominal pain. Patient gradual onset of symptoms. Patient reports having the episodes of diarrhea intermittently for the past 3-4 weeks. He states that he had been having a generalized crampy abdominal pain. He presents having a prior history of acid reflux and been taking acid blockers. He denies any hematemesis or bloody stools. He reports having recently injured his hands and having some pain to the hands. Allergies: Coded Allergies: No Known Allergies (Unverified , 03/06/18) Patient History Past Medical History: see triage record Reviewed Nursing Documentation: PMH: Agreed; PSxH: Agreed Nursing Documentation-PMH Past Medical History: No History, Except For Hx Cardiac Problems: No Hx Hypertension: No Hx Pacemaker: No Hx Asthma: No Hx COPD: No Hx Diabetes: No Hx Cancer: No Hx Gastrointestinal Problems: Yes - GERD Hx Dialysis: No Hx Neurological Problems: No Hx Cerebrovascular Accident: No Hx Seizures: No Review of Systems All Other Systems: negative except mentioned in HPI Physical Exam Vital Signs Date Time Temp Pulse Resp B/P (MAP) Pulse Ox O2 Delivery O2 Flow Rate FiO2 03/24/18 13:40 97.9 72 18 111/74 95 Room Air Sp02 EP Interpretation: reviewed, normal General Appearance: normal inspection, well appearing, no apparent distress, alert, GCS 15 Head: atraumatic ENT: normal ENT inspection, hearing grossly normal, normal voice Neck: normal inspection, full range of motion, supple, no bony tend Respiratory: normal inspection, lungs clear, normal breath sounds, no respiratory distress, no retraction, no wheezing Cardiovascular #1: regular rate, rhythm, no edema Gastrointestinal: normal inspection, soft, no guarding, no hernia Genitourinary: no CVA tenderness Musculoskeletal: normal inspection, back normal, normal range of motion Neurologic: normal inspection, alert, oriented x3, responsive, manager secondary III-XII nml as tested, speech normal Psychiatric: normal inspection, judgement/insight normal, mood/affect normal Skin: normal inspection, normal color, no rash Medical Decision Making Diagnostic Impression: Primary Impression: Epigastric pain Additional Impression: Conjunctivitis ER Course Patient presented for abdominal pain. Differential diagnoses included ischemic bowel, appendicitis, perforated viscus, abdominal aortic aneurysm, inferior myocardial infarction, viral gastroenteritis Because of complexity of patient's case laboratory testing and imaging studies were ordered.Laboratory studies are unremarkable. Patient was noted to have prior history of gastroesophageal reflux disease. He was given acid blockers as well as a GI cocktail. Patient was advised outpatient follow-up with his primary care physician. The patient is advised to return if he began having worsening pain persistent vomiting hematemesis or other concerns. Labs Test 03/24/18 14:15 03/24/18 14:20 White Blood Count 7.2 K/UL (4.8-10.8) Red Blood Count 5.26 M/UL (4.70-6.10) Hemoglobin 15.5 G/DL (14.2-18.0) Hematocrit 46.6 % (42.0-52.0) Mean Corpuscular Volume 89 FL (80-99) Mean Corpuscular Hemoglobin 29.5 PG (27.0-31.0) Mean Corpuscular Hemoglobin Concent 33.3 G/DL (32.0-36.0) Red Cell Distribution Width 11.5 % (11.6-14.8) Platelet Count 213 K/UL (150-450) Mean Platelet Volume 8.0 FL (6.5-10.1) Neutrophils (%) (Auto) 53.5 % (45.0-75.0) Lymphocytes (%) (Auto) 33.0 % (20.0-45.0) Monocytes (%) (Auto) 6.9 % (1.0-10.0) Eosinophils (%) (Auto) 5.8 % (0.0-3.0) Basophils (%) (Auto) 0.9 % (0.0-2.0) Sodium Level 140 MMOL/L (136-145) Potassium Level 4.0 MMOL/L (3.5-5.1) Chloride Level 105 MMOL/L (98-107) Carbon Dioxide Level 31 MMOL/L (21-32) Anion Gap 4 mmol/L (5-15) Blood Urea Nitrogen 15 mg/dL (7-18) Creatinine 1.3 MG/DL (0.55-1.30) Estimat Glomerular Filtration Rate > 60 mL/min (>60) Glucose Level 106 MG/DL (74-106) Calcium Level 8.9 MG/DL (8.5-10.1) Total Bilirubin 0.5 MG/DL (0.2-1.0) Aspartate Amino Transf (AST/SGOT) 19 U/L (15-37) Alanine Aminotransferase (ALT/SGPT) 26 U/L (12-78) Alkaline Phosphatase 293 U/L (46-116) Troponin I 0.004 ng/mL (0.000-0.056) Total Protein 7.4 G/DL (6.4-8.2) Albumin 3.6 G/DL (3.4-5.0) Globulin 3.8 g/dL Albumin/Globulin Ratio 0.9 (1.0-2.7) Lipase 232 U/L (73-393) Urine Color Yellow Urine Appearance Clear Urine pH 5 (4.5-8.0) Urine Specific [place] 1.020 (1.005-1.035) Urine Protein 1+ (NEGATIVE) Urine Glucose (UA) Negative (NEGATIVE) Urine Ketones 1+ (NEGATIVE) Urine Blood Negative (NEGATIVE) Urine Nitrite Negative (NEGATIVE) Urine Bilirubin Negative (NEGATIVE) Urine Urobilinogen 1 MG/DL (0.0-1.0) Urine Leukocyte Esterase 1+ (NEGATIVE) Urine RBC 0 /HPF (0 - 0) Urine WBC 0-2 /HPF (0 - 0) Urine Squamous Epithelial Cells None /LPF (NONE/OCC) Urine Bacteria Occasional /HPF (NONE) Last Vital Signs Date Time Temp Pulse Resp B/P (MAP) Pulse Ox O2 Delivery O2 Flow Rate FiO2 03/24/18 13:40 97.9 72 18 111/74 95 Room Air Status: improved Disposition: HOME, SELF-CARE Condition: Stable Scripts Gentamicin Sulfate* (GENTAK*) 5 Ml Drops 1 DROP RIGHT EYE Q4H, #1 DROP 0 Refills Prov: Blake Avilez MD 03/24/18 Omeprazole (OMEPRAZOLE) 20 Mg Capsule. 20 MG ORAL DAILY, #30 CAP Prov: Blake Avilez MD 03/24/18 Blake Avilez MD Mar 24, 2018 14:03
[2018-03-24 14:28] LABS: APPEARANCE,URINE CLEAR; BILIRUBIN, URINE NEGATIVE (NEGATIVE); GLUCOSE, URINE (UA) NEGATIVE (NEGATIVE); KETONES,URINE 1+ (NEGATIVE); LEUKOCYTE ESTERASE ,URINE 1+ (NEGATIVE); NITRITE,URINE NEGATIVE (NEGATIVE); PH,URINE 5 (4.5-8.0); PROTEIN,URINE 1+ (NEGATIVE); UROBILINOGEN,URINE 1 MG/DL (0.0-1.0)
[2018-03-24 14:30] LABS: COLOR,URINE YELLOW
[2018-03-24 14:45] LABS: BASOPHILS % (AUTO) 0.9 % (0.0-2.0); EOSINOPHILS % (AUTO) 5.8 % (0.0-3.0); HEMATOCRIT 46.6 % (42.0-52.0); HEMOGLOBIN 15.5 G/DL (14.2-18.0); MEAN CORPUSCULAR VOLUME 89 FL (80-99); MONOCYTES % (AUTO) 6.9 % (1.0-10.0); NEUTROPHILS % (AUTO) 53.5 % (45.0-75.0); PLATELET COUNT 213 K/UL (150-450); RED BLOOD COUNT 5.26 M/UL (4.70-6.10); RED CELL DISTRIBUTION WIDTH 11.5 % (11.6-14.8); WHITE BLOOD COUNT 7.2 K/UL (4.8-10.8)
[2018-03-24 14:47] LABS: ANION GAP 4 mmol/L (5-15); BLOOD UREA NITROGEN 15 mg/dL (7-18); CALCIUM 8.9 MG/DL (8.5-10.1); CARBON DIOXIDE 31 MMOL/L (21-32); CHLORIDE 105 MMOL/L (98-107); CREATININE 1.3 MG/DL (0.55-1.30); SODIUM 140 MMOL/L (136-145)
[2018-03-24 14:52] LABS: ALANINE AMINOTRANSFERASE 26 U/L (12-78); ALBUMIN 3.6 G/DL (3.4-5.0); ALBUMIN/GLOBULIN RATIO 0.9 (1.0-2.7); ALKALINE PHOSPHATASE 293 U/L (46-116); ASPARTATE AMINO TRANSFERASE 19 U/L (15-37); BILIRUBIN,TOTAL 0.5 MG/DL (0.2-1.0)
[2018-03-24] MEDS ORDERED: OMEPRAZOLE20 M2 ORAL (15:49)
[2018-03-24] MEDS ORDERED: GENTAK5 ML RIGHT EYE (15:49)
[2018-03-24 15:53] VITALS: BP 111/74
[2018-03-24 16:27] VITALS: BP 117/73
== END 2018-03-24 16:27 | disposition home or self-care (01) ==
LOC: EMR 14:15
DX: R10.13 Epigastric pain (principal); H10.9 Unspecified conjunctivitis; K21.9 Gastro-esophageal reflux disease without esophagitis
CPT/HCPCS: 36415; 80053; 81003; 83690; 84484; 85025; 96374; 96375; 99284; J2405; J7040; S0028

== ENCOUNTER 2018-03-27 14:50 | Emergency (ER) | payer OTHER ==
[~2018-03-27] VITALS: Ht 180.3 cm; Wt 79.8 kg
[~2018-03-27 14:50] MED LIST changes: +GENTAK5 ML RIGHT EYE
[2018-03-27] MEDS ORDERED: Morgan Lens TOPIC ONE (15:30)
[2018-03-27] MEDS ORDERED: Tetracaine 0.5% Opth 4ml Soln LEFT EYE ONE (15:30)
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
[2018-03-27 16:25] VITALS: BP 142/95
[2018-03-27] MEDS ORDERED: KETOROLAC TROMET5 M1 OP (16:49)
[2018-03-27] MEDS ORDERED: TYLENOL EXTRA500 MG ORAL (16:49)
[2018-03-27] MEDS ORDERED: OCUFLOX5 ML OP (16:49)
[2018-03-27] MEDS ORDERED: Fluorescein Strips BOTH EYES ONE (17:00)
[2018-03-27 18:00] VITALS: BP 135/78
== END 2018-03-27 18:00 | disposition home or self-care (01) ==
LOC: EMR 15:43
DX: H10.213 Acute toxic conjunctivitis, bilateral (principal); S05.01XA Injury of conjunctiva and corneal abrasion without foreign body, right eye, initial encounter; X58.XXXA Exposure to other specified factors, initial encounter; Y92.9 Unspecified place or not applicable; K21.9 Gastro-esophageal reflux disease without esophagitis
CPT/HCPCS: 99283

== ENCOUNTER 2018-03-31 01:34 | Emergency (ER) | payer OTHER ==
[~2018-03-31] VITALS: Ht 180.3 cm; Wt 79.8 kg
[~2018-03-31 01:34] MED LIST changes: +KETOROLAC TROMET5 M1 OP; +OCUFLOX5 ML OP
[2018-03-31 01:50] VITALS: BP 119/72
[2018-03-31] MEDS ORDERED: Bactrim-DS 1 tab ORAL ONE (02:15)
[2018-03-31] MEDS ORDERED: Bacitracin Oint UD TOPIC ONE (02:15)
--- NOTE | 2018-03-31 02:57 | Emergency Room Report ---
History of Present Illness General Chief Complaint: Skin Rash/Abscess Source: Patient Present Illness HPI Patient presents with several days of pain in the R axilla. He feels a bump there and it is slightly red. The pain is rated 7/10, aching, not radiating, worse with palpation. No fevers, chills, cough. H/O bronchitis - no wheezing. No other rashes. No trauma. No NVD, dysuria. H/O GERD. Denies DM. Tetanus 01/2018 Allergies: Coded Allergies: No Known Allergies (Unverified , 03/06/18) Patient History Past Medical History: see triage record Social History: Denies: smoking Reviewed Nursing Documentation: PMH: Agreed; PSxH: Agreed Nursing Documentation-PMH Hx Cardiac Problems: No Hx Hypertension: No Hx Pacemaker: No Hx Asthma: No Hx COPD: No Hx Diabetes: No Hx Cancer: No Hx Gastrointestinal Problems: Yes - gerd Hx Dialysis: No Hx Neurological Problems: No Hx Cerebrovascular Accident: No Hx Seizures: No Review of Systems All Other Systems: negative except mentioned in HPI Physical Exam Vital Signs Date Time Temp Pulse Resp B/P (MAP) Pulse Ox O2 Delivery O2 Flow Rate FiO2 03/31/18 01:43 98.1 60 16 119/72 97 03/31/18 01:50 Room Air Sp02 EP Interpretation: reviewed, normal General Appearance: well appearing, no apparent distress, alert, GCS 15 Head: normocephalic, atraumatic Eyes: bilateral eye normal inspection, bilateral eye PERRL ENT: hearing grossly normal, normal voice, moist mucus membranes Neck: full range of motion, supple Respiratory: no respiratory distress, speaking full sentences Cardiovascular #1: regular rate, rhythm Cardiovascular #2: 2+ radial (R) Gastrointestinal: normal inspection Musculoskeletal: gait/station normal, normal range of motion Neurologic: alert, oriented x3, normal gait, grossly normal Psychiatric: mood/affect normal Skin: other - erythematous nodule R axilla, no fluctuance Lymphatic: no adenopathy Medical Decision Making Diagnostic Impression: Primary Impression: Cellulitis of right axilla ER Course Patient with painful lesion R axilla. DDx: abscess, cellulitis, infected sebaceous cyst amongst others. Not large enough or fluctuant to be able to dhruv or aspirate. Antibiotics indicated as well as analgesics. Tetanus UTD. Patient started on tx. Patient stable for outpatient observation and treatment. Status: improved Disposition: HOME, SELF-CARE Condition: Improved Scripts Tramadol Hcl* (ULTRAM*) 50 Mg Tablet 50 MG ORAL Q6H PRN for For Pain, #8 TAB 0 Refills Prov: Mich Spears MD 03/31/18 Acetaminophen (Tylenol) 325 Mg Tablet 650 MG ORAL Q6H PRN for Prn Pain/Headache/Temp > 101, #20 TAB 0 Refills Prov: Mich Spears MD 03/31/18 Trimethoprim/Sulfamethoxazole 160/800* (BACTRIM DS TABLET*) 1 Each Tablet 1 TAB ORAL Q12H, #14 TAB 0 Refills Prov: Mich Spears MD 03/31/18 Bacitracin (Bacitracin) 28.4 Gm Oint...g. 1 APPLIC TOPIC BID, #14 GM Prov: Mich Spears MD 03/31/18 Referrals: [facility],REFERRING (PCP) Mich Spears MD Mar 31, 2018 02:57
[2018-03-31] MEDS ORDERED: TYLENOL325 MG ORAL (03:01)
[2018-03-31] MEDS ORDERED: BACITRACIN15 GM TOPIC (03:01)
[2018-03-31] MEDS ORDERED: TRAMADOL HCL50 MG ORAL (03:01)
[2018-03-31] MEDS ORDERED: BACTRIM DS TAB1 EAC1 ORAL (03:01)
[2018-03-31 03:07] VITALS: BP 119/72
== END 2018-03-31 03:07 | disposition home or self-care (01) ==
LOC: EMR 02:04
DX: L03.111 Cellulitis of right axilla (principal); K21.9 Gastro-esophageal reflux disease without esophagitis
CPT/HCPCS: 99283

== ENCOUNTER 2018-05-14 13:06 | Emergency (ER) | payer OTHER ==
[~2018-05-14] VITALS: Ht 180.3 cm; Wt 82.6 kg
[~2018-05-14 13:06] MED LIST changes: +BACITRACIN15 GM TOPIC; +BACTRIM DS TAB1 EAC1 ORAL; +TRAMADOL HCL50 MG ORAL; +TYLENOL325 MG ORAL
[2018-05-14 13:13] VITALS: BP 95/56
--- NOTE | 2018-05-14 13:56 | Emergency Room Report ---
History of Present Illness General Chief Complaint: Flu Like Symptoms Source: Medical Record Present Illness HPI 57-year-old male presents to the emergency department complaining of 10/10 in severity body aches, dizziness, nausea/vomiting, weakness/fatigue 2 days. Patient also reports that he has some nasal congestion and cough and cold-like symptoms for several days as well. Patient denies recent travel or ill contacts. He denies significant past medical history including cardiac history. Patient describes his dizziness as episodic primarily when he standing or getting up from a seated position and states that it feels more as if he is off balance like walking on a boat he denies vertigo. He denies recent head trauma. Denies CP, Palpitations, LOC, AMS, Changes in Vision, Sensation, paresthesias, or a sudden severe headache. Denies pain. Allergies: Coded Allergies: No Known Allergies (Unverified , 03/06/18) Patient History Past Medical History: see triage record Past Surgical History: none Pertinent Family History: none Reviewed Nursing Documentation: PMH: Agreed; PSxH: Agreed Nursing Documentation-PMH Past Medical History: No History, Except For Hx Cardiac Problems: No Hx Hypertension: No Hx Pacemaker: No Hx Asthma: No Hx COPD: No Hx Diabetes: No Hx Cancer: No Hx Gastrointestinal Problems: Yes - gerd Hx Dialysis: No Hx Neurological Problems: No Hx Cerebrovascular Accident: No Hx Seizures: No Review of Systems All Other Systems: negative except mentioned in HPI Physical Exam Vital Signs Date Time Temp Pulse Resp B/P (MAP) Pulse Ox O2 Delivery O2 Flow Rate FiO2 05/14/18 13:13 99.0 66 18 95/56 96 Room Air Sp02 EP Interpretation: reviewed, normal General Appearance: no apparent distress, alert, GCS 15, non-toxic Head: normocephalic, atraumatic Eyes: bilateral eye normal inspection, bilateral eye PERRL ENT: hearing grossly normal, normal voice Neck: full range of motion Respiratory: lungs clear, normal breath sounds, no rhonchi, no respiratory distress, no wheezing, speaking full sentences Cardiovascular #1: regular rate, rhythm, normal capillary refill Gastrointestinal: normal bowel sounds, non tender, soft, non-distended, no guarding Musculoskeletal: back normal, gait/station normal, normal range of motion, non- tender Neurologic: alert, oriented x3, responsive, motor strength/tone normal, sensory intact, normal gait, speech normal, other - dizziness upon standing- minimal then resolves., grossly normal Psychiatric: judgement/insight normal Skin: normal color, no rash, warm/dry, well hydrated Lymphatic: no adenopathy Medical Decision Making PA Attestation Dr. silva is my supervising Physician whom patient management has been discussed with. Diagnostic Impression: Primary Impression: Acute viral syndrome Additional Impression: Dehydration ER Course 57-year-old male presents to the emergency department complaining of 10/10 in severity body aches, dizziness, nausea/vomiting, weakness/fatigue 2 days. Patient also reports that he has some nasal congestion and cough and cold-like symptoms for several days as well. Patient denies recent travel or ill contacts. He denies significant past medical history including cardiac history. Patient describes his dizziness as episodic primarily when he standing or getting up from a seated position and states that it feels more as if he is off balance like walking on a boat he denies vertigo. He denies recent head trauma. Denies CP, Palpitations, LOC, AMS, Changes in Vision, Sensation, paresthesias, or a sudden severe headache. Denies pain. Ddx considered but are not limited to Mnire's, BPPV, labrinitis, cerebellar stroke, hypovolemia, cardiac cause. Vital signs: are WNL, pt. is afebrile H&PE are most consistent with : possible viral syndrome and orthostatic dizziness -- will investigate more No focal deficit to indicate TIA or CVA. No vertical nystagmus. Better after IV fluid and Ativan. Because of lack of focality and red flags, I see no need for CT scan. We'll discharge home. ORDERS: CBC: WNL BMP: WNL -- cr 1.4 -Troponin: 0.00 - Lipase: WNL ED INTERVENTIONS: 1.5 liters NS IV 4mg Zofran IV - Upon re-evaluation pt. reports feeling much better, not having dizziness, bodyaches are somewhat resolving. -I do not identify an emergent condition at this time. With current presentation , pt. is stable for close outpatient follow up and conservative treatment. D/ w pt. to return promptly to ED with worsening or new symptoms.- Pt. verbalizes' understanding and agreement with proposed treatment plan.proposed treatment plan. DISCHARGE: At this time pt. is stable for d/c to home. Will provide printed patient care instructions, and any necessary prescriptions. Care plan and follow up instructions have been discussed with the patient prior to discharge. Labs Test 05/14/18 14:15 White Blood Count 4.8 K/UL (4.8-10.8) Red Blood Count 4.89 M/UL (4.70-6.10) Hemoglobin 14.9 G/DL (14.2-18.0) Hematocrit 44.0 % (42.0-52.0) Mean Corpuscular Volume 90 FL (80-99) Mean Corpuscular Hemoglobin 30.4 PG (27.0-31.0) Mean Corpuscular Hemoglobin Concent 33.7 G/DL (32.0-36.0) Red Cell Distribution Width 11.1 % (11.6-14.8) Platelet Count 196 K/UL (150-450) Mean Platelet Volume 7.0 FL (6.5-10.1) Neutrophils (%) (Auto) 52.2 % (45.0-75.0) Lymphocytes (%) (Auto) 30.6 % (20.0-45.0) Monocytes (%) (Auto) 12.8 % (1.0-10.0) Eosinophils (%) (Auto) 2.9 % (0.0-3.0) Basophils (%) (Auto) 1.5 % (0.0-2.0) Sodium Level 137 MMOL/L (136-145) Potassium Level 3.6 MMOL/L (3.5-5.1) Chloride Level 101 MMOL/L (98-107) Carbon Dioxide Level 29 MMOL/L (21-32) Anion Gap 7 mmol/L (5-15) Blood Urea Nitrogen 11 mg/dL (7-18) Creatinine 1.4 MG/DL (0.55-1.30) Estimat Glomerular Filtration Rate > 60 mL/min (>60) Glucose Level 100 MG/DL (74-106) Calcium Level 8.7 MG/DL (8.5-10.1) Troponin I 0.000 ng/mL (0.000-0.056) Lipase 109 U/L (73-393) EKG Diagnostic Results EP Interpretation: Dr. Rose Rate: normal - 64 bmp Rhythm: NSR ST Segments: no acute changes ASA given to the pt in ED: No PA Scribe Text This Interpretation was scribed by ESSIE Stone. Last Vital Signs Date Time Temp Pulse Resp B/P (MAP) Pulse Ox O2 Delivery O2 Flow Rate FiO2 05/14/18 13:13 99.0 66 18 95/56 96 Room Air Disposition: HOME, SELF-CARE Condition: Stable Scripts Naproxen* (NAPROXEN*) 500 Mg Tablet.dr 500 MG ORAL TWICE A DAY for 7 Days, #14 TAB Prov: Alexa Stone 05/14/18 Ondansetron Odt* (ZOFRAN ODT*) 8 Mg Tab.rapdis 4 MG ORAL Q6H PRN for Nausea & Vomiting, #15 TAB Prov: Alexa Stone 05/14/18 Patient Instructions: Dehydration, Adult, Kjqa-[id number], Upper Respiratory Infection, Adult, [id number] Additional Instructions: Take medications as directed. Follow up with a Primary Care Provider in 3-5 days, even if your symptoms have resolved. --Please review list of primary care clinics, if you do not already have a primary care provider Return sooner to ED if new symptoms occur, or current symptoms become worse. - Please note that this Emergency Department Report was dictated using [employer] ax solution architect technology software, occasionally this can lead to erroneous entry secondary to interpretation by the dictation equipment. Alexa Stone May 14, 2018 13:56
[2018-05-14] MEDS ORDERED: NKM (14:24)
[2018-05-14 14:34] LABS: BASOPHILS % (AUTO) 1.5 % (0.0-2.0); EOSINOPHILS % (AUTO) 2.9 % (0.0-3.0); HEMOGLOBIN 14.9 G/DL (14.2-18.0); LYMPHOCYTES % (AUTO) 30.6 % (20.0-45.0); MEAN CORPUSCULAR VOLUME 90 FL (80-99); MONOCYTES % (AUTO) 12.8 % (1.0-10.0); NEUTROPHILS % (AUTO) 52.2 % (45.0-75.0); PLATELET COUNT 196 K/UL (150-450); RED BLOOD COUNT 4.89 M/UL (4.70-6.10); RED CELL DISTRIBUTION WIDTH 11.1 % (11.6-14.8); WHITE BLOOD COUNT 4.8 K/UL (4.8-10.8)
[2018-05-14 14:54] LABS: ANION GAP 7 mmol/L (5-15); BLOOD UREA NITROGEN 11 mg/dL (7-18); CALCIUM 8.7 MG/DL (8.5-10.1); CARBON DIOXIDE 29 MMOL/L (21-32); CHLORIDE 101 MMOL/L (98-107); CREATININE 1.4 MG/DL (0.55-1.30); POTASSIUM 3.6 MMOL/L (3.5-5.1); SODIUM 137 MMOL/L (136-145)
[2018-05-14 15:10] VITALS: BP 119/77
[2018-05-14] MEDS ORDERED: Sodium Chloride 500ML 500 ML IV ONE (15:15)
[2018-05-14] MEDS ORDERED: NAPROXEN500 M1 ORAL (16:29)
[2018-05-14] MEDS ORDERED: ZOFRAN ODT8 MG ORAL (16:29)
[2018-05-14 17:01] VITALS: BP 120/72
--- NOTE | 2018-05-15 12:23 | Cardiology Report ---
APPROVED REPORT EKG Measurement Heart [id number] Normal sinus rhythm with sinus arrhythmia Nonspecific T wave abnormality Abnormal ECG
== END 2018-05-14 17:02 | disposition home or self-care (01) ==
LOC: EMR 15:00
DX: B34.9 Viral infection, unspecified (principal); E86.0 Dehydration; K21.9 Gastro-esophageal reflux disease without esophagitis
CPT/HCPCS: 36415; 80048; 83690; 84484; 85025; 93005; 96361; 96374; 99284; J2405

== ENCOUNTER 2018-08-19 08:40 | Emergency (ER) | payer OTHER ==
[~2018-08-19] VITALS: Ht 180.3 cm; Wt 84.4 kg
[~2018-08-19 08:40] MED LIST changes: +NAPROXEN500 M1 ORAL; +NKM; +ZOFRAN ODT8 MG ORAL
[2018-08-19 08:49] VITALS: BP 101/67
[2018-08-19] MEDS ORDERED: ZITHROMAX250 MG ORAL (09:20)
[2018-08-19] MEDS ORDERED: PEPCID AC20 M2 PO (09:20)
--- NOTE | 2018-08-19 09:30 | Emergency Room Report ---
History of Present Illness General Chief Complaint: Flu Like Symptoms Source: Patient Present Illness HPI Patient presents with complaints of cough Runny nose Reports that he also has history of gastritis and has been out of his antacid medicine and having reflux sensation as well Denies any chest pain or shortness of breath and eyes any neck pain or photophobia Denies any diarrhea or lower abdominal pain Patient is here with partner who has some similar upper respiratory complaints as well Allergies: Coded Allergies: No Known Allergies (Unverified , 03/06/18) Patient History Past Medical History: see triage record Pertinent Family History: none Reviewed Nursing Documentation: PMH: Agreed; PSxH: Agreed Nursing Documentation-PMH Past Medical History: No History, Except For Hx Cardiac Problems: No Hx Hypertension: No Hx Pacemaker: No Hx Asthma: No Hx COPD: No Hx Diabetes: No Hx Cancer: No Hx Gastrointestinal Problems: Yes - gerd Hx Dialysis: No Hx Neurological Problems: No Hx Cerebrovascular Accident: No Hx Seizures: No Review of Systems All Other Systems: negative except mentioned in HPI Physical Exam Vital Signs Date Time Temp Pulse Resp B/P (MAP) Pulse Ox O2 Delivery O2 Flow Rate FiO2 08/19/18 08:49 97.5 46 20 101/67 96 Room Air Sp02 EP Interpretation: reviewed, normal General Appearance: well appearing, no apparent distress Head: normocephalic, atraumatic Eyes: bilateral eye PERRL, bilateral eye EOMI ENT: hearing grossly normal, normal pharynx, TMs + canals normal, uvula midline Neck: full range of motion, supple, no meningismus, no bony tend Respiratory: lungs clear, normal breath sounds, no rhonchi, no respiratory distress, no retraction, no accessory muscle use Cardiovascular #1: normal peripheral pulses, regular rate, rhythm, no edema, no gallop, no JVD, no murmur Gastrointestinal: normal bowel sounds, non tender, soft, no mass, no organomegaly, non-distended, no guarding, no hernia, no pulsatile mass, no rebound Genitourinary: no CVA tenderness Musculoskeletal: normal inspection Neurologic: oriented x3, responsive, closet builder III-XII nml as tested, motor strength/ tone normal, sensory intact Psychiatric: mood/affect normal Skin: normal color, no rash, warm/dry, palpation normal Lymphatic: normal inspection, no adenopathy Medical Decision Making Diagnostic Impression: Primary Impression: Influenza-like symptoms Additional Impression: Gastritis ER Course Multiple differentials and consideration including but not limited to URI, pharyngitis, cholecystitis pancreatitis Patient otherwise has a benign medical evaluation abdomen remains soft patient essentially asymptomatic at time of presentation Patient provided with appropriate initial intervention And requires close outpatient follow-up Last Vital Signs Date Time Temp Pulse Resp B/P (MAP) Pulse Ox O2 Delivery O2 Flow Rate FiO2 08/19/18 08:49 97.5 46 20 101/67 96 Room Air Status: unchanged Disposition: HOME, SELF-CARE Condition: Stable Scripts Azithromycin* (ZITHROMAX*) 250 Mg Tablet 250 MG ORAL DAILY, #6 TAB 0 Refills Take two tables once daily for 1 day, then one tablet once daily for 4 days. Prov: Aviva Alfaro DO 08/19/18 Famotidine (PEPCID AC) 20 Mg Tablet 20 MG PO DAILY, #20 TAB Prov: Aviva Alfaro DO 08/19/18 Referrals: Arsal[facility] Patient Instructions: Influenza, Adult, Kbmi-oe-Pdtm, Abdominal Pain, Adult Additional Instructions: Patient is provided with the discharge instructions notified to follow up with primary doctor in the next 2-3 days otherwise return to the er with any worsening symptoms. Please note that this report is being documented using [employer] technology. This can lead to erroneous entry secondary to incorrect interpretation by the dictating instrument. Aviva Alfaro DO Aug 19, 2018 09:30
--- NOTE | 2018-08-19 09:33 | NUR ---
ED Nurse Note: Pt. AAOX4. Ambulatory. camein to ER due to generalized body aches, cough, congestion with n/v x 7 days. Pt. is not actively vomiting at this time.
[2018-08-19 10:05] VITALS: BP 107/69
--- NOTE | 2018-08-19 10:07 | NUR ---
ER DISCHARGE NOTE: Patient is cleared to be discharged per ERMD, pt is aox4, on room air, with stable vital signs. pt was given dc and prescription instructions, pt was able to verbalize understanding, pt is able to ambulate with steady gait. pt took all belongings.
== END 2018-08-19 10:07 | disposition home or self-care (01) ==
LOC: EMR 09:00
DX: R05 Cough (principal); K29.70 Gastritis, unspecified, without bleeding; K21.9 Gastro-esophageal reflux disease without esophagitis
CPT/HCPCS: 99282

== ENCOUNTER 2019-06-06 13:28 | Emergency (ER) | payer OTHER ==
[~2019-06-06] VITALS: Ht 180.3 cm; Wt 83.9 kg
[~2019-06-06 13:28] MED LIST changes: +ZITHROMAX250 MG ORAL
--- NOTE | 2019-06-06 13:38 | NUR ---
ED Nurse Note: PT AMBULATED TO ED C/O COUGH WITH GREEN PHLEGM X 6 DAYS PT STATES HE TOOK MUCINEX AN DID NOT HELP
[2019-06-06 13:39] VITALS: BP 123/72
--- NOTE | 2019-06-06 13:40 | NUR ---
ED Nurse Note: XRAY AT BEDSIDE
--- NOTE | 2019-06-06 13:43 | NUR ---
ED Nurse Note: XRAY COMPLETED
--- NOTE | 2019-06-06 14:17 | Diagnostic Imaging Report ---
Indication: Cough Technique: One view of the chest Comparison: 08/08/2017 Findings: Lungs and pleural spaces are clear. Heart size is normal. No significant interim change Impression: No acute process
--- NOTE | 2019-06-06 14:19 | Emergency Room Report ---
History of Present Illness General Chief Complaint: Flu Like Symptoms Source: Patient Present Illness HPI 58-year-old male with history of heavy tobacco smoke, here complaining of 1 week of cough and congestion with phlegm production. Has not taken medication for symptom relief. Denies any fever and chills at this time. Reports that onset of his symptoms started with sore throat. Denies any recent travel, marijuana use, drug use. Patient does admit to of smoking 4 cigarettes/day on daily basis. Denies chest pain, shortness of breath, palpitation, headache and dizziness. Allergies: Coded Allergies: No Known Allergies (Unverified , 03/06/18) Patient History Past Medical History: see triage record Past Surgical History: unable to obtain Pertinent Family History: none Social History: Reports: smoking - tobacco Immunizations: UTD Reviewed Nursing Documentation: PMH: Agreed; PSxH: Agreed Nursing Documentation-PMH Past Medical History: No History, Except For Hx Cardiac Problems: No Hx Hypertension: No Hx Pacemaker: No Hx Asthma: No Hx COPD: No Hx Diabetes: No Hx Cancer: No Hx Gastrointestinal Problems: Yes - gerd Hx Dialysis: No Hx Neurological Problems: No Hx Cerebrovascular Accident: No Hx Seizures: No Review of Systems All Other Systems: negative except mentioned in HPI Physical Exam Vital Signs Date Time Temp Pulse Resp B/P (MAP) Pulse Ox O2 Delivery O2 Flow Rate FiO2 06/06/19 13:34 97.5 79 21 123/72 (89) 95 Room Air Sp02 EP Interpretation: reviewed, normal General Appearance: no apparent distress, alert, GCS 15, non-toxic Head: normocephalic, atraumatic Eyes: bilateral eye normal inspection, bilateral eye PERRL ENT: hearing grossly normal, normal pharynx, no angioedema, normal voice, TMs + canals normal, uvula midline, moist mucus membranes Neck: full range of motion, supple, thyroid normal, no meningismus, supple/symm /no masses Respiratory: chest non-tender, lungs clear, normal breath sounds, no rhonchi, no respiratory distress, no retraction, no accessory muscle use, no wheezing, speaking full sentences Cardiovascular #1: regular rate, rhythm, no edema, no murmur Gastrointestinal: normal bowel sounds, non tender, soft, non-distended, no guarding, no rebound Rectal: deferred Genitourinary: no CVA tenderness Musculoskeletal: back normal, no calf tenderness Neurologic: alert, motor strength/tone normal, oriented x3, sensory intact, responsive, speech normal Psychiatric: judgement/insight normal, memory normal, mood/affect normal, no suicidal/homicidal ideation Skin: no rash Lymphatic: no adenopathy Medical Decision Making PA Attestation All my diagnosis and treatment plans were reviewed ad discussed with my supervising physician Dr. Alfaro Diagnostic Impression: Primary Impression: Atypical pneumonia ER Course 58-year-old male with history of heavy tobacco smoke, here complaining of 1 week of cough and congestion with phlegm production. Has not taken medication for symptom relief. Denies any fever and chills at this time. Reports that onset of his symptoms started with sore throat. Denies any recent travel, marijuana use, drug use. Patient does admit to of smoking 4 cigarettes/day on daily basis. Denies chest pain, shortness of breath, palpitation, headache and dizziness. Ddx considered but are not limited to: atypical pneumonia, bronchitis, PNA, URI viral, bacterial bronchitis Vital signs: are WNL, pt. is afebrile H&PE are most consistent with: Atypical pneumonia ORDERS: Chest x-ray, azithromycin, guaifenesin, Tessalon Perles, albuterol ED INTERVENTIONS: None required at this time. DISCHARGE: At this time pt. is stable for d/c to home. Will provide printed patient care instructions, and any necessary prescriptions. Care plan and follow up instructions have been discussed with the patient prior to discharge. Patient to follow-up with primary care provider, avoid smoking, take medication as directed, if worsening symptoms return to emergency room. Chest X-Ray Diagnostic Results Chest X-Ray Diagnostic Results : Chest X-Ray Ordered: Yes # of Views/Limited/Complete: 1 View Indication: Other - cough EP Interpretation: Yes PA Xray: Interpretation reviewed, by supervising MD, and agrees with findings. Interpretation: no consolidation, no effusion, no pneumothorax Impression: No acute disease Electronically Signed by: Lacy Hernandez PA-C Last Vital Signs Date Time Temp Pulse Resp B/P (MAP) Pulse Ox O2 Delivery O2 Flow Rate FiO2 06/06/19 13:39 97.5 79 21 123/72 95 Room Air Disposition: HOME, SELF-CARE Condition: Stable Scripts Albuterol Sulfate (VENTOLIN HFA) 18 Gm Hfa.aer.ad 2 PUFFS INH EVERY 6 HOURS, #18 GM 0 Refills Prov: Lacy Persaud 06/06/19 Benzonatate* (TESSALON PERLE*) 100 Mg Capsule 100 MG ORAL THREE TIMES A DAY, #21 PERLE Prov: Lacy Persaud 06/06/19 Guaifenesin* (GUAIFENESIN*) 100 Mg/5 Ml Liquid 5 ML ORAL Q6H, #120 ML 0 Refills Prov: Lacy Persaud 06/06/19 Azithromycin* (ZITHROMAX*) 250 Mg Tablet 250 MG ORAL DAILY, #6 TAB 0 Refills Take two tables once daily for 1 day, then one tablet once daily for 4 days. Prov: Lacy Persaud 06/06/19 Patient Instructions: Upper Respiratory Infection, Adult, [id number] Additional Instructions: Take medication as directed, avoid smoking, follow-up with your primary care provider, if worsening symptoms return to emergency room Lacy Persaud Jun 06, 2019 14:19
[2019-06-06] MEDS ORDERED: VENTOLIN HFA18 GM INH (14:24)
[2019-06-06] MEDS ORDERED: GUAIFENESI100 MG/5 M ORAL (14:24)
[2019-06-06] MEDS ORDERED: TESSALON PERLE100 MG ORAL (14:24)
[2019-06-06] MEDS ORDERED: ZITHROMAX250 MG ORAL (14:24)
[2019-06-06 14:38] VITALS: BP 129/72
--- NOTE | 2019-06-06 14:39 | NUR ---
ER DISCHARGE NOTE: Patient is cleared to be discharged per ERMD, pt is aox4, on room air, with stable vital signs. pt was given dc and prescription instructions, pt was able to verbalize understanding, pt id band removed. pt is able to ambulate with steady gait. pt took all belongings.
== END 2019-06-06 14:40 | disposition home or self-care (01) ==
LOC: EMR 14:10
DX: J18.9 Pneumonia, unspecified organism (principal); K21.9 Gastro-esophageal reflux disease without esophagitis
CPT/HCPCS: 71045; Z7502; 99283

== ENCOUNTER 2020-01-08 13:39 | Emergency (ER) | payer OTHER ==
[~2020-01-08] VITALS: Ht 180.3 cm; Wt 81.6 kg
[~2020-01-08 13:39] MED LIST changes: +CYCLOBENZAPRINE10 MG ORAL; +GUAIFENESI100 MG/5 M ORAL; +TESSALON PERLE100 MG ORAL; +VENTOLIN HFA18 GM INH
--- NOTE | 2020-01-08 13:56 | NUR ---
ED Nurse Note: Patient walked in to ER via crutches for C/O a trash bin beng rolled over his right foot x 45 min ago. pain 10/10, patient can wiggle his toes, AAO x4, VSS at this time.
--- NOTE | 2020-01-08 14:14 | Emergency Room Report ---
History of Present Illness General Chief Complaint: Lower Extremity Injury Source: Patient Present Illness HPI Patient was in front of a trash bin weighing 400 pounds that rolled on his foot and twisted his ankle. He has pain when he tries to walk. He is unable to ambulate without crutches. The pain is 10/10 at this time. Does not radiate up into the leg. He denies any numbness. He is not taking medication and has not treated it with any ice. He is never injured the ankle in the past. No exposure to COVID-19 known No fevers, chills, sore throat, chest pain, palpitations, nausea, vomiting, diarrhea, dysuria, abdominal pain, shortness of breath, rashes, depression, anxiety, visual changes, dizziness, headache. 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 Patient History Past Medical History: none Social History: Reports: smoking Social History Narrative lives with girlfriend Reviewed Nursing Documentation: PMH: Agreed; PSxH: Agreed Nursing Documentation-PMH Past Medical History: No History, Except For Hx Hypertension: No Hx Pacemaker: No Hx Asthma: No Hx COPD: No Hx Diabetes: No Hx Cancer: No Hx Gastrointestinal Problems: Yes - gerd Hx Dialysis: No Hx Neurological Problems: No Hx Cerebrovascular Accident: No Hx Seizures: No Review of Systems All Other Systems: negative except mentioned in HPI Physical Exam Vital Signs Date Time Temp Pulse Resp B/P (MAP) Pulse Ox O2 Delivery O2 Flow Rate FiO2 01/08/20 13:43 97.5 115 17 142/90 (107) 98 Room Air Sp02 EP Interpretation: reviewed, normal General Appearance: well appearing, no apparent distress, GCS 15 Head: normocephalic Eyes: bilateral eye normal inspection, bilateral eye PERRL, bilateral eye EOMI ENT: moist mucus membranes Neck: normal inspection, full range of motion Respiratory: normal inspection Cardiovascular #1: regular rate, rhythm Cardiovascular #2: 2+ radial (R), 2+ dorsalis pedis (R) Gastrointestinal: normal inspection Musculoskeletal: tenderness - Right ankle and dorsum of foot. Ligaments intact. Diffuse tenderness. Neurologic: alert, distal neuro normal, oriented x3, grossly normal Psychiatric: mood/affect normal Skin: no rash, warm/dry Medical Decision Making Diagnostic Impression: Primary Impression: Right ankle sprain Qualified Codes: S93.401A - Sprain of unspecified ligament of right ankle, initial encounter ER Course Patient presents with right ankle and foot injury. Differential includes sprain , contusion and fracture. By [place] ankle rules he qualifies for x-ray as he is unable to ambulate. He is allergic to Motrin will be given Percocet. I applied ice to the ankle. X-ray without fracture, dislocation or soft tissue swelling. Air splint applied by tech. Examined by me. Neurovascular intact. Improvement in pain. Discussed findings with patient. Patient stable for outpatient observation and treatment. Other X-Ray Diagnostic Results Other X-Ray Diagnostic Results : X-Ray ordered: Right ankle # of Views/Limited Vs Complete: 3 View Indication: Pain EP Interpretation: Yes Interpretation: no dislocation, no soft tissue swelling, no fractures Impression: No acute disease Electronically Signed by: Electronically signed by Mich Spears MD Last Vital Signs Date Time Temp Pulse Resp B/P (MAP) Pulse Ox O2 Delivery O2 Flow Rate FiO2 01/08/20 15:56 97.5 17 142/90 98 Room Air 01/08/20 13:43 115 Status: improved Disposition: HOME, SELF-CARE Condition: Improved Scripts Hydrocodone Bit/Acetaminophen 5-325* (NORCO 5-325 TABLET*) 1 Each Tablet 1 TAB ORAL Q6H PRN for FOR PAIN, #10 TAB 0 Refills Prov: Mich Spears MD 01/08/20 Referrals: [facility],REFERRING (PCP) Mich Spears MD Jan 08, 2020 14:14
[2020-01-08] MEDS ORDERED: oxyCODONE HCL/Acetaminophen 5/325mg PO ONE (14:15)
[2020-01-08] MEDS ORDERED: NORCO 5-325 TA1 EAC1 ORAL (15:24)
[2020-01-08 15:56] VITALS: BP 142/90
--- NOTE | 2020-01-08 15:56 | NUR ---
ED Nurse Note: Pt cleared by health care Provider for discharge. DC instructions/prescription was given and explained to pt and verbalized understanding of teachings. All medical deviecs such as ID band removed. Pt is AAO x4, ambulatory and left with all personal belongings.
--- NOTE | 2020-01-08 16:18 | Diagnostic Imaging Report ---
Indication: Trauma, pain Technique: 3 views of the right ankle Comparison: none Findings: No acute fractures. No dislocations. The joint spaces are preserved Impression: Negative
== END 2020-01-08 15:58 | disposition home or self-care (01) ==
LOC: EMR 14:10
DX: S93.401A Sprain of unspecified ligament of right ankle, initial encounter (principal); X58.XXXA Exposure to other specified factors, initial encounter; Y92.9 Unspecified place or not applicable; Z88.6 Allergy status to analgesic agent; F17.200 Nicotine dependence, unspecified, uncomplicated; K21.9 Gastro-esophageal reflux disease without esophagitis
CPT/HCPCS: 73610; Z7502; 99283

== ENCOUNTER 2020-04-12 17:57 | Emergency (ER) | payer OTHER ==
[~2020-04-12] VITALS: Ht 180.3 cm; Wt 83.5 kg
[~2020-04-12 17:57] MED LIST changes: +NORCO 5-325 TA1 EAC1 ORAL
--- NOTE | 2020-04-12 18:07 | NUR ---
ED Nurse Note: pt presents to ED needing a refill for Valtrex. pt states that he lost his prescription and needs a refill for his presciprtion
[2020-04-12 18:09] VITALS: BP 103/59
[2020-04-12] MEDS ORDERED: VALACYCLOVIR500 MG ORAL (18:10)
[2020-04-12 18:14] VITALS: BP 103/59
--- NOTE | 2020-04-12 18:14 | NUR ---
ER DISCHARGE NOTE: Patient is cleared to be discharged per ERMD, pt is aox4, on room air, with stable vital signs. pt was given dc and prescription instructions, pt was able to verbalize understanding, pt id band removed without complications. pt is able to ambulate with steady gait. pt took all belongings.
--- NOTE | 2020-04-12 18:47 | Emergency Room Report ---
History of Present Illness General Chief Complaint: Skin Rash/Abscess Source: Patient Present Illness HPI 59-year-old male presents to ED with a sore to his lip. Has been there for few weeks. Denies pain. Was seen by his PMD and was told it was herpes. Was prescribed Valtrex. States that he lost the prescription after he filled it. Is here for refill of the medication. No other aggravating relieving factors. Denies any other associated symptoms Allergies: Coded Allergies: IBUPROFEN (Verified Allergy, Unknown, 06/13/19) COVID-19 Screening Contact w/high risk pt: No Experienced COVID-19 symptoms?: No COVID-19 Testing performed TIMBER HAND: Yes COVID-19 Screening: Negative COVID-19 COVID-19 Testing Source: 3 months ago/ [facility] Patient History Past Medical History: GERD Past Surgical History: none Pertinent Family History: none Social History: Denies: smoking, alcohol use, drug use Immunizations: UTD Reviewed Nursing Documentation: PMH: Agreed; PSxH: Agreed Nursing Documentation-PMH Past Medical History: No History, Except For Hx Hypertension: No Hx Pacemaker: No Hx Asthma: No Hx COPD: No Hx Diabetes: No Hx Cancer: No Hx Gastrointestinal Problems: Yes - gerd Hx Dialysis: No Hx Neurological Problems: No Hx Cerebrovascular Accident: No Hx Seizures: No Review of Systems All Other Systems: negative except mentioned in HPI Physical Exam Vital Signs Date Time Temp Pulse Resp B/P (MAP) Pulse Ox O2 Delivery O2 Flow Rate FiO2 04/12/20 18:00 97.5 84 16 103/59 (74) 94 Sp02 EP Interpretation: reviewed, normal General Appearance: no apparent distress, alert, GCS 15, non-toxic Head: normocephalic, atraumatic Eyes: bilateral eye normal inspection, bilateral eye PERRL ENT: hearing grossly normal, normal pharynx, no angioedema, normal voice Neck: full range of motion, supple/symm/no masses Respiratory: chest non-tender, lungs clear, normal breath sounds, speaking full sentences Cardiovascular #1: regular rate, rhythm, no edema Cardiovascular #2: 2+ carotid (R), 2+ carotid (L), 2+ radial (R), 2+ radial (L), 2+ dorsalis pedis (R), 2+ dorsalis pedis (L) Gastrointestinal: normal bowel sounds, non tender, soft, non-distended, no guarding, no rebound Rectal: deferred Genitourinary: normal inspection, no CVA tenderness Musculoskeletal: back normal, normal range of motion, gait/station normal, non- tender Neurologic: alert, motor strength/tone normal, oriented x3, sensory intact, responsive, speech normal Psychiatric: judgement/insight normal, memory normal, mood/affect normal, no suicidal/homicidal ideation Reflexes: 3+ bicep (R), 3+ bicep (L), 3+ tricep (R), 3+ tricep (L), 3+ knee (R), 3+ knee (L) Skin: other - sore on right lower lip Lymphatic: no adenopathy Medical Decision Making Diagnostic Impression: Primary Impression: Sore of lip ER Course 59-year-old male presents requesting a refill of his Valtrex. Prescribed for a sore on his lip hospital course: After initial history exam reveals an middle-age male in no acute distress. There is a sore on the right lower lip. Consistent with herpes. Patient will be restarted on Valtrex. Safe for discharge with close outpatient follow-up Diagnosis- sore of lip Stable and discharged to home with prescription for Valtrex. followup with PMD. Return to ED if symptoms recur or worsen Last Vital Signs Date Time Temp Pulse Resp B/P (MAP) Pulse Ox O2 Delivery O2 Flow Rate FiO2 04/12/20 18:14 97.5 86 16 103/59 94 Status: improved Disposition: HOME, SELF-CARE Condition: Stable Scripts Valacyclovir Hcl* (VALTREX*) 500 Mg Tablet 1000 MG ORAL TWICE A DAY for 7 Days, TAB Prov: Ciro Rose MD 04/12/20 Referrals: Arsalan Mason Patient Instructions: Oral Ulcers Ciro Rose MD Apr 12, 2020 18:47
== END 2020-04-12 18:15 | disposition home or self-care (01) ==
LOC: EMR 18:10
DX: K13.0 Diseases of lips (principal); K21.9 Gastro-esophageal reflux disease without esophagitis; Z88.6 Allergy status to analgesic agent
CPT/HCPCS: 99282